=== PATIENT | male | born 1980 | race Caucasian/White ===

== ENCOUNTER 2018-03-21 22:49 | Observation (INO) ==
[2018-03-22] MEDS ORDERED: 0.9 % Sodium Chloride 1,000 ML IVC ONE (00:11)
[2018-03-22] MEDS ORDERED: *HR* FentaNYL (PF) 100 MCG/2 ML VIAL IVP ONE ×2 (00:11→03:37)
--- NOTE | 2018-03-22 00:15 | Emergency Department Note ---
Disposition Clinical Impression: Pelvic pain in male, Bladder stones Urinary tract infection Qualifiers: Urinary tract infection type: site unspecified Hematuria presence: with hematuria Qualified Code(s): N39.0 - Urinary tract infection, site not specified ; R31.9 - Hematuria, unspecified Disposition: Admitted As Inpatient Condition: Fair Referrals: Minda Alicea CNP [Primary Care Provider] - Forms: ED Satisfaction Letter, Work/School Release Time of Disposition: 03:01 Abdominal Pain HPI - General Chief Complaint: ED Abdominal Pain Stated Complaint: Kidney Stones Source: patient, family Mode of arrival: private vehicle Limitations: no limitations Nursing Notes Reviewed: Yes Vital Signs Reviewed: Yes - History of Present Illness Pt Subjective Complaint: abdominal pain Onset (ago): day(s) (Ever since getting Botox injections due to bladder stones at the end of February) Consistency: constant Location: LLQ, RLQ Pain Severity: severe Pain Scale: 7 Quality: sharp Migration to: no migration Improves with: nothing Worsens with: nothing Associated symptoms: Reports: nausea - Related Data Home Medications Medication Instructions Recorded Confirmed Baclofen [Lioresal] 10 mg PO TID PRN 03/07/18 03/07/18 Buspirone HCl [Buspar] 10 mg PO BID 03/07/18 03/07/18 Docusate [Colace] 100 mg PO DAILY 03/07/18 03/07/18 Esomeprazole Magnesium [Nexium] 40 mg PO DAILY 03/07/18 03/07/18 Gabapentin [Neurontin] 400 mg PO TID 03/07/18 03/07/18 Gabapentin [Neurontin] 800 mg PO TID 03/07/18 03/07/18 Lactobacillus Acidophilus 1 mg PO DAILY 03/07/18 03/07/18 [Acidophilus Probiotic] Lidocaine Patch [Lidoderm 5% patch] 1 patch TP DAILY 03/07/18 03/07/18 Megestrol Acetate [Megace] 40 mg PO BID 03/07/18 03/07/18 Multivitamin [One Daily Essential] 1 tab PO DAILY 03/07/18 03/07/18 Sertraline [Zoloft] 100 mg PO DAILY 03/07/18 03/07/18 Solifenacin Succinate [Vesicare] 10 mg PO DAILY 03/07/18 03/07/18 Trazodone HCl 100 mg PO HS 03/07/18 03/07/18 Previous Rx's Medication Instructions Recorded Sulfamethoxazole/Trimeth DS 1 each PO BID #14 tablet 03/07/18 [Bactrim DS] Allergies Allergy/AdvReac Type Severity Reaction Status Date / Time Methadone Allergy See Verified 03/07/18 12:14 Comments ketorolac [From Toradol] AdvReac Seizure Verified 03/07/18 12:14 tramadol AdvReac Seizure Verified 03/07/18 12:14 All systems ED: reviewed and negative except as stated. Constitutional: Denies: fever, chills ENT ED: Denies: ear pain, throat pain Cardiovascular: Denies: chest pain Respiratory: Denies: cough Gastrointestinal: Reports: abdominal pain Integumentary: Denies: rash Abdominal Pain PMH - Past Medical History Medical history: Reports: other Male Surgical History: Reports: colostomy Psychiatric history: Reports: depression - Social History Smoking status: Current every day smoker Alcohol use: Reports: none Drug use: Reports: none Physical Exam - General Limitations: no limitations General appearance: alert, in no apparent distress - Head Head exam: atraumatic, normocephalic, normal inspection - Eye Eye exam: Absent: scleral icterus, conjunctival injection - ENT ENT exam: normal exam, mucous membranes moist - Neck Neck exam: Present: full ROM - Chest Chest inspection: Present: normal inspection, symmetric chest wall rise. Absent : tenderness - Respiratory Respiratory exam: Present: normal lung sounds bilaterally. Absent: respiratory distress, wheezes - Cardiovascular Cardiovascular exam: Present: regular rate, normal rhythm, normal heart sounds - Abdominal Exam Abdominal exam: Present: soft, Non-Tender, normal bowel sounds - Extremities Exam Extremities exam: Present: normal inspection. Absent: pedal edema - Neurological Exam Neurological exam: Present: alert, oriented X3 - Psychiatric Psychiatric exam: Present: normal mood, flat affect - Skin Skin exam: Present: warm, dry. Absent: rash Course Course Narrative: Patient with history of kidney stones and bladder stones. He is getting THE TREATMENTS TRIED TO ALLEVIATE THEM. REPORTEDLY THE FAMILY MEMBERS CALLED THE UROLOGIST OFFICE YESTERDAY AND TODAY AND TODAY AT ABOUT 3:00 THIS AFTERNOON SHE WAS TOLD TO BRING THE ER TO BE EVALUATED AND WE MAY BE ABLE TO CONSULT A UROLOGIST AND GET EXPEDITED MANAGEMENT. SO THE PATIENT SHOWS UP AT 11 PM TO BE SEEN AFTER THAT 3:00 PHONE CALL. BELLY EXAM IS BENIGN. I AM NEGATIVE SOME PAIN MEDICATIONS AND GET A LAB WORKUP GOING AND CT HIS ABDOMEN TO SEE WHAT REALLY GOING ON. DISPOSITION WILL BE BASED ON DIAGNOSTIC RESULTS AND REEVALUATION. - Reevaluation(s) Reevaluation #1: Labs are normal. Urinalysis however has white cells and bacteria and nitrates in it. CAT scan shows tonsil stones in the bladder but no evidence of ureterolithiasis. I had already Spoken to Dr. Miramontes, the urologist. He recommended admitting the patient to the hospital and he is going to operate on him tomorrow to remove those bladder stones. Time: 03:00 - Consultations Consultation #1: Dr. Miramontes, urology - admit patient to hospitalist Time: 00:45 Consultation #2: , hospitalist - I discussed the patient's case with the hospitalist. He is accepted patient for admission. Time: 03:02 Vital Signs Temperature 98.6 F 03/21/18 22:52 Pulse Rate 127 03/21/18 22:52 Respiratory Rate 18 03/21/18 22:52 Blood Pressure 106/70 03/21/18 22:52 O2 Sat by Pulse Oximetry 96 03/21/18 22:52 Temperature 98.6 F 03/21/18 22:52 Pulse Rate 111 03/22/18 01:27 Respiratory Rate 16 03/22/18 01:27 Blood Pressure 98/64 03/22/18 01:27 O2 Sat by Pulse Oximetry 96 03/22/18 01:27 Oxygen Delivery Oxygen Delivery Room Air Abdominal Pain - Medical Records Medical records reviewed: Yes I reviewed the patient's medical records. - Lab Data Lab results reviewed: Yes I reviewed the patient's lab results. Result diagrams: 03/22/18 00:30 03/22/18 00:30 Lab Results 03/22/18 03/22/18 03/22/18 Range/Units 00:30 00:30 00:51 WBC 11.1 (4.3-11.1) K/mcL RBC 5.09 (4.19-5.50) M/mcL Hgb 13.6 (12.9-16.9) g/dL Hct 41.0 (37.5-50.1) % MCV 80.6 L (83.0-100.0) fL MCH 26.7 L (28.0-33.3) pg MCHC 33.2 (31.6-35.5) g/dL RDW 15.4 H (11.5-14.5) % Plt Count 308 (140-400) K/mcL MPV 10.4 (9.4-12.4) fL Immature Gran % 0.4 (0-4) % Seg Neutrophils % 71.6 % Lymphocytes % 19.9 % Monocytes % 6.3 % Eosinophils % 1.2 % Basophils % 0.6 % Neutrophils # 8.0 (1.6-8.9) K/mcL Lymphocytes # 2.2 (0.6-4.6) K/mcL Monocytes # 0.7 (0.0-1.3) K/mcL Eosinophils # 0.1 (0.0-0.6) K/mcL Basophils # 0.1 (0.0-0.2) K/mcL Sodium 137 (136-145) mEq/L Potassium 4.0 (3.5-5.1) mEq/L Chloride 106 (98-107) mEq/L Carbon Dioxide 22 L (23-29) mEq/L BUN 14 (6-20) mg/dL Creatinine 0.53 L (0.70-1.30) mg/dL Est GFR ( Amer) > 60 (> 60) Est GFR (Non-Af Amer) > 60 (> 60) BUN/Creatinine Ratio 26 (6-26) Glucose 102 (70-105) mg/dL Calculated Osmolality 285 (280-300) Calcium 9.1 (8.6-10.3) mg/dL Urine Color Dark Yellow (Yellow) Urine Clarity Cloudy A (Clear) Urine pH 6.0 (5.0-8.0) pH Units Ur Specific [place] 1.030 H (1.010-1.025) Urine Protein 30 H (Neg-Trace) mg/dL Urine Glucose (UA) Normal (Normal) mg/dL Urine Ketones Negative (Negative) mg/dL Urine Blood Large H (Negative) Urine Nitrite Positive A (Negative) Urine Bilirubin Negative (Negative) Urine Urobilinogen Normal (Normal) mg/dL Ur Leukocyte Esterase Large H (Negative) Urine Microscopic RBC 0-3 (0-3) per hpf Urine Microscopic WBC TNTC H (0-3) per hpf Ur Squamous Epith Cells Many H (None-Few) per lpf Urine Bacteria Many H (None-Few) per hpf Hyaline Casts None Seen (None-Few) per lpf Ur Culture Indicated? NO. A (NO) - Radiology Data Radiology results reviewed: Yes I reviewed the patient's radiology results.
[2018-03-22 00:39] LABS: Basophils # 0.1 K/mcL (0.0-0.2); Basophils % 0.6 %; Eosinophils # 0.1 K/mcL (0.0-0.6); Eosinophils % 1.2 %; Hemoglobin 13.6 g/dL (12.9-16.9); Immature Granulocytes % 0.4 % (0-4); Lymphocytes # 2.2 K/mcL (0.6-4.6); Lymphocytes % 19.9 %; Mean Corpuscular HGB Conc 33.2 g/dL (31.6-35.5); Mean Corpuscular Hemoglobin 26.7 pg (28.0-33.3); Mean Corpuscular Volume 80.6 fL (83.0-100.0); Mean Platelet Volume 10.4 fL (9.4-12.4); Monocytes # 0.7 K/mcL (0.0-1.3); Monocytes % 6.3 %; Platelet Count 308 K/mcL (140-400); Red Blood Count 5.09 M/mcL (4.19-5.50); Red Cell Distribution Width 15.4 % (11.5-14.5); Segmented Neutrophils % 71.6 %
[2018-03-22 00:58] LABS: Bilirubin,Urine Negative (Negative); Blood,Urine Large (Negative); Clarity,Urine Cloudy (Clear); Color,Urine Dark Yellow (Yellow); Glucose,Urine (UA) Normal (Normal); Ketones,Urine Negative (Negative); Leukocyte Esterase,Urine Large (Negative); Nitrite,Urine Positive (Negative); Protein,Urine 30 mg/dL (Neg-Trace); Urobilinogen,Urine Normal (Normal)
[2018-03-22 00:58] LABS: BUN/Creatinine Ratio 26 (6-26); Blood Urea Nitrogen 14 mg/dL (6-20); Calcium 9.1 mg/dL (8.6-10.3); Carbon Dioxide 22 mEq/L (23-29); Chloride 106 mEq/L (98-107); Glucose 102 mg/dL (70-105); Osmolality,Calculated 285 (280-300); Sodium 137 mEq/L (136-145); eGFR For African Americans > 60 (> 60); eGFR For Non-African Americans > 60 (> 60)
[2018-03-22 01:01] LABS: Bacteria,Urine Many per hpf (None-Few); Hyaline Casts,Urine None Seen per lpf (None-Few); RBC,Urine 0-3 per hpf (0-3); Squamous Epithelial Cell,Urine Many per lpf (None-Few); WBC,Urine TNTC per hpf (0-3)
[2018-03-22] MEDS ORDERED: cefTRIAXone 1,000 MG in Water for inj. (sterile) 20 ML 10 ML IVPB ONE (02:58)
[2018-03-22] MEDS ORDERED: *HR* FentaNYL (PF) 100 MCG/2 ML VIAL ONE ×2 (03:57→17:06)
[2018-03-22] MEDS ORDERED: *HR* FentaNYL (PF) 100 MCG/2 ML VIAL IVP PRN ×2 (05:20→19:06)
[2018-03-22] MEDS ORDERED: Naloxone 0.4 MG/ML INJ IVP PRN (05:20)
[2018-03-22] MEDS ORDERED: Acetaminophen 325 MG TABLET PO PRN (05:20)
[2018-03-22] MEDS ORDERED: Ondansetron 4 MG/2 ML VIAL IVP PRN (05:20)
--- NOTE | 2018-03-22 05:37 | Internal Med History&Physical ---
Date of Encounter: 03/22/18 Time of Encounter: 05:00 Internal Medicine - H&P: HPI Chief complaint: pelvic pain Admitted From: Emergency Dept Plans for Post Hospital Care: Home History of present illness: Mr. Peraza is a 37 year old male who presents the ER this morning with complaints of pelvic pain, nausea, vomiting. He is paraplegic and suffers from neurogenic bladder. Reportedly, he performs urine catheterization on himself several times per day. He has been following recently Dr. Miramontes and had an outpatient procedure scheduled to be done. However, he developed worsening pelvic pain with protracted nausea and vomiting. Dr. Miramontes recommended he come the ER for evaluation. Workup in ER revealed negative labs except for urinalysis suggestive of UTI. He did have CT imaging of his abdomen and pelvis , which revealed patient to have multiple bladder stones and bladder wall thickening. ER talked to Dr. Miramontes about this patient. Dr. Miramontes requested patient be admitted to hospital service with urology consultation. Upon my assessment of the patient, he is sitting up in bed and rocking back and forth complaining of some pelvic pain. Unfortunately, he provides very little to no history whatsoever. He is not cooperative with history and/or exam. Family members are no longer present at bedside. I could not obtain any further history from patient whatsoever. Past Med Surg Social Fam HX - Past Medical History Source: old records reviewed Medical history: other (paraplegia; chronic sacral decubitus ulcer) Additional medical history: paraplegic, self cath. open wounds on coccyx seen by wound care in [place] Psychiatric history: depression - Past Surgical History Additional surgical history: g tube, G-tube reversal - Social History Smoking Status: Current every day smoker Smokeless Tobacco Status: No Alcohol use: none Drug use: none Current living situation: Home, With Family Activity Level: Wheelchair bound Recent Out of Country Travel Within the Last 8 Weeks: No - Family History Mother History Unknown: Yes Living Status: Still Living Father History Unknown: Yes Internal Medicine - H&P: Meds Baclofen [Lioresal] 10 mg PO TID PRN 03/07/18 [History] Buspirone HCl [Buspar] 10 mg PO BID 03/07/18 [History] Docusate [Colace] 100 mg PO DAILY 03/07/18 [History] Esomeprazole Magnesium [Nexium] 40 mg PO DAILY 03/07/18 [History] Gabapentin [Neurontin] 400 mg PO TID 03/07/18 [History] Gabapentin [Neurontin] 800 mg PO TID 03/07/18 [History] Lactobacillus Acidophilus [Acidophilus Probiotic] 1 mg PO DAILY 03/07/18 [ History] Lidocaine Patch [Lidoderm 5% patch] 1 patch TP DAILY 03/07/18 [History] Megestrol Acetate [Megace] 40 mg PO BID 03/07/18 [History] Multivitamin [One Daily Essential] 1 tab PO DAILY 03/07/18 [History] Sertraline [Zoloft] 100 mg PO DAILY 03/07/18 [History] Solifenacin Succinate [Vesicare] 10 mg PO DAILY 03/07/18 [History] Sulfamethoxazole/Trimeth DS [Bactrim DS] 1 each PO BID #14 tablet 03/07/18 [Rx] Trazodone HCl 100 mg PO HS 03/07/18 [History] 3 Allergy/AdvReac Type Severity Reaction Status Date / Time Methadone Allergy See Verified 03/07/18 12:14 Comments ketorolac [From Toradol] AdvReac Seizure Verified 03/07/18 12:14 tramadol AdvReac Seizure Verified 03/07/18 12:14 ROS unobtainable: other (patient not cooperating with history and/or exam; refusins to answer questions) - Constitutional Vitals: Temp Pulse Resp BP Pulse Ox 98.2 F 81 19 105/67 97 03/22/18 04:41 03/22/18 04:41 03/22/18 04:41 03/22/18 04:41 03/22/18 04:41 General appearance: Present: A&O X 3, no acute distress, answers questions appropriately Exam: refusing to cooperate with [employer] and exam - Head Head exam: Present: normal inspection - Eye Eye exam: Present: EOMI, normal appearance, PERRL. Absent: scleral icterus Pupils: Present: normal accommodation - ENT ENT exam: Present: mucous membranes dry, normal exam, normal oropharynx - Neck Neck exam general surgery: Present: supple. Absent: full ROM, tenderness, nuchal rigidity, thyromegaly - Respiratory Respiratory exam: Present: CTAB. Absent: chest wall tenderness, rales, rhonchi , wheezes - Cardiovascular Cardiovascular exam: Present: +S1, +S2. Absent: diastolic murmur, JVD, RRR, systolic murmur - GI/Abdominal GI/Abdominal exam: Present: soft, tenderness (pelvic area; suprapubic area). Absent: hepatomegaly, splenomegaly - Extremities Exam Extremities exam: Present: warm, radial pulses palpable and symmetrical. Absent : calf tenderness, pedal edema, tenderness Additional comments: atrophy of BLE noted - Back Exam Back exam: Present: CVA tenderness (R). Absent: CVA tenderness (L), vertebral tenderness Additional comments: old/well-healed spinal surgery scar noted Patient would not allow me or nurse to examine sacral wound - Neurological Exam Neurological exam: Present: alert, motor sensory deficit (BLE extremities -- old spinal cord injury), oriented X3 - Psychiatric Psychiatric exam: Present: flat affect Additional comments: non-cooperative with history and exam - Skin Skin exam: Present: dry, intact, warm Internal Med - H&P Results - Labs CBC & Chem 7: 03/22/18 00:30 03/22/18 00:30 - Diagnostic Studies CT scan - abdomen Status: image reviewed by me (multiple bladder stones noted) - Assessment and plan (1) Bladder stones Current Visit: Yes Status: Acute Assessment and plan: 1. Will keep NPO. 2. Will hydrate with IVF, control nausea with anti-emetics, and treat pain with judicious use of IV Fentanyl. 3. Will order STAT urine culture and start IV antibiotics for presumed UTI. 4. Consult urology as he will likely need intervention. (2) Pelvic pain in male Current Visit: Yes Status: Acute Assessment and plan: 1. Likely due to bladder stones and presumed UTI. 2. Will need formal assessment of sacral ulcer as this could contribute to pelvic pain. 3. Will consult wound care to assess sacral wound. (3) Urinary tract infection Current Visit: Yes Status: Acute Assessment and plan: 1. STAT urine culture -- note Rocephin already given in ER before urine sample could be collected. 2. Will treat with Rocephin. 3. Urology consulted for intervention as above. Qualifiers: Urinary tract infection type: site unspecified Hematuria presence: without hematuria Qualified Code(s): N39.0 - Urinary tract infection, site not specified (4) DVT prophylaxis Current Visit: Yes Status: Acute Assessment and plan: 1. Heparin SQ.
[2018-03-22] MEDS ORDERED: 0.9 % Sodium Chloride 1,000 ML ONE (05:39)
[2018-03-22] MEDS ORDERED: Ondansetron 4 MG/2 ML VIAL ONE ×2 (05:39→17:08)
[2018-03-22] MEDS: 0.9 % Sodium Chloride 1,000 ML IVC SCH ×2 (05:49→15:11)
--- NOTE | 2018-03-22 06:47 | Urology - Consult Note ---
Date of Encounter: 03/22/18 Time of Encounter: 06:45 - Assessment and Plan (1) Bladder stones Current Visit: Yes Status: Acute Assessment and plan: I personally reviewed the CT scan. Again noted are innumerable large bladder stones. Based on my conversation with the patient's mom a few weeks ago and their desire to undergo outpatient open cystolithotomy we have elected to proceed with the procedure as an inpatient. The patient does not verbally communicate but did shake his head yes when asked if he wished to proceed. We will confirm this plan with the mother prior to proceeding this afternoon. Urology CN:HPI Consult date: 03/22/18 History of present illness: Patient well-known to the urology service. Neurogenic bladder secondary to spinal cord injury. Known bladder stones which were discovered during an intravesical Botox procedure. Plan for outpatient open cystolithotomy. Continues to have significant symptoms and was admitted from the emergency room overnight. No fever. Past Med Surg Social Fam HX - Past Medical History Medical history: other (paraplegia; chronic sacral decubitus ulcer) Additional medical history: paraplegic, self cath. open wounds on coccyx seen by wound care in [place] Psychiatric history: depression - Past Surgical History Additional surgical history: g tube, G-tube reversal - Social History Smoking Status: Current every day smoker Smokeless Tobacco Status: No Alcohol use: none Drug use: none - Family History Mother History Unknown: Yes Living Status: Still Living Father History Unknown: Yes Medications and Allergies Baclofen [Lioresal] 10 mg PO TID PRN 03/07/18 [History] Buspirone HCl [Buspar] 10 mg PO BID 03/07/18 [History] Docusate [Colace] 100 mg PO DAILY 03/07/18 [History] Esomeprazole Magnesium [Nexium] 40 mg PO DAILY 03/07/18 [History] Gabapentin [Neurontin] 400 mg PO TID 03/07/18 [History] Gabapentin [Neurontin] 800 mg PO TID 03/07/18 [History] Lactobacillus Acidophilus [Acidophilus Probiotic] 1 mg PO DAILY 03/07/18 [ History] Lidocaine Patch [Lidoderm 5% patch] 1 patch TP DAILY 03/07/18 [History] Megestrol Acetate [Megace] 40 mg PO BID 03/07/18 [History] Multivitamin [One Daily Essential] 1 tab PO DAILY 03/07/18 [History] Sertraline [Zoloft] 100 mg PO DAILY 03/07/18 [History] Solifenacin Succinate [Vesicare] 10 mg PO DAILY 03/07/18 [History] Sulfamethoxazole/Trimeth DS [Bactrim DS] 1 each PO BID #14 tablet 03/07/18 [Rx] Trazodone HCl 100 mg PO HS 03/07/18 [History] 3 Allergy/AdvReac Type Severity Reaction Status Date / Time Methadone Allergy See Verified 03/07/18 12:14 Comments ketorolac [From Toradol] AdvReac Seizure Verified 03/07/18 12:14 tramadol AdvReac Seizure Verified 03/07/18 12:14 Review of Systems ROS unobtainable: due to mental status - Constitutional no fever(s) Exam Initial Vital Signs Temp Pulse Resp BP Pulse Ox 98.6 F 127 18 106/70 96 03/21/18 22:52 03/21/18 22:52 03/21/18 22:52 03/21/18 22:52 03/21/18 22:52 - General physical appearance Present: no distress, chronically ill - Eyes Present: other (does Not make eye contact) - ENT Present: normal nares - Neck Present: no masses. Absent: no lymphadenopathy - Abdomen Abdomen: Present: soft, suprapubic tenderness (non verbal communication. ) Urology Results - Labs 03/22/18 00:30 03/22/18 00:30 Abnormal lab results MCV 80.6 fL (83.0-100.0) L 03/22/18 00:30 MCH 26.7 pg (28.0-33.3) L 03/22/18 00:30 RDW 15.4 % (11.5-14.5) H 03/22/18 00:30 Carbon Dioxide 22 mEq/L (23-29) L 03/22/18 00:30 Creatinine 0.53 mg/dL (0.70-1.30) L 03/22/18 00:30 Urine Clarity Cloudy (Clear) A 03/22/18 00:51 Ur Specific [place] 1.030 (1.010-1.025) H 03/22/18 00:51 Urine Protein 30 mg/dL (Neg-Trace) H 03/22/18 00:51 Urine Blood Large (Negative) H 03/22/18 00:51 Urine Nitrite Positive (Negative) A 03/22/18 00:51 Ur Leukocyte Esterase Large (Negative) H 03/22/18 00:51 Urine Microscopic WBC TNTC per hpf (0-3) H 03/22/18 00:51 Ur Squamous Epith Cells Many per lpf (None-Few) H 03/22/18 00:51 Urine Bacteria Many per hpf (None-Few) H 03/22/18 00:51 Ur Culture Indicated? NO. (NO) A 03/22/18 00:51 All other labs normal. Consult Discharge Plan - Plan Referrals: Minda Alicea, [facility] [Primary Care Provider] -
[2018-03-22] MEDS: *HR* Heparin 5,000 UNIT/ML VIAL SQ SCH (06:50)
[2018-03-22 06:59] LABS: INR 1.4; Prothrombin Time 15.7 Seconds (9.4-12.1)
[2018-03-22 07:01] LABS: Activated Partial Thrombo Time 36.5 Seconds (26.0-36.0)
[2018-03-22] MEDS ORDERED: *HR* OxyCODONE Immed Rel 5 MG TABLET PO PRN ×2 (10:37→19:06)
[2018-03-22] MEDS ORDERED: Baclofen 10 MG TABLET PO PRN (13:41)
[2018-03-22] MEDS ORDERED: NON-FORMULARY MEDICATION 1 EACH EACH (Gabapentin [Neurontin] 800 MG) PO SCH (15:00)
[2018-03-22] MEDS ORDERED: Gabapentin 400 MG CAPSULE PO SCH (15:00)
[2018-03-22] MEDS: cefTRIAXone 1,000 MG in Water for inj. (sterile) 20 ML 10 ML IVP SCH (15:12)
[2018-03-22] MEDS: Gabapentin 400 MG CAPSULE PO SCH ×2 (15:12→22:10)
[2018-03-22] MEDS ORDERED: *HR* Propofol 200 MG/20 ML VIAL IVP ONE (17:06)
[2018-03-22] MEDS ORDERED: *HR* Midazolam HCl 2 MG/2 ML VIAL ONE ×2 (17:06→19:28)
[2018-03-22] MEDS ORDERED: Dexamethasone 4 MG/ML VIAL ONE (17:08)
[2018-03-22] MEDS ORDERED: Lidocaine -MPF 2% 2 ML VIAL ONE (17:08)
--- NOTE | 2018-03-22 17:59 | Anesthesia Evaluation PreOp ---
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) Other Medical History: Denies Any Significant HX Anesthesia History: No Prior Anesthetic Complications Alcohol Use: none Drug use: none Medications and Allergies Baclofen [Lioresal] 10 mg PO TID PRN 03/07/18 [History] Buspirone HCl [Buspar] 10 mg PO BID 03/07/18 [History] Docusate [Colace] 100 mg PO DAILY 03/07/18 [History] Esomeprazole Magnesium [Nexium] 40 mg PO DAILY 03/07/18 [History] Gabapentin [Neurontin] 400 mg PO TID 03/07/18 [History] Gabapentin [Neurontin] 800 mg PO TID 03/07/18 [History] Lactobacillus Acidophilus [Acidophilus Probiotic] 1 mg PO DAILY 03/07/18 [ History] Lidocaine Patch [Lidoderm 5% patch] 1 patch TP DAILY 03/07/18 [History] Megestrol Acetate [Megace] 40 mg PO BID 03/07/18 [History] Multivitamin [One Daily Essential] 1 tab PO DAILY 03/07/18 [History] Sertraline [Zoloft] 100 mg PO DAILY 03/07/18 [History] Trazodone HCl 100 mg PO HS 03/07/18 [History] Oxybutynin Chloride [Ditropan Xl] 15 mg PO DAILY 03/22/18 [History] 3 Allergy/AdvReac Type Severity Reaction Status Date / Time Methadone Allergy See Verified 03/07/18 12:14 Comments ketorolac [From Toradol] AdvReac Seizure Verified 03/07/18 12:14 tramadol AdvReac Seizure Verified 03/07/18 12:14 - Meds/Allergy Pre-op Review Medications Reviewed: Yes Allergies Reviewed: Yes Beta Blockers on Current Med List: No Anesthesia Results - Labs 03/22/18 00:30 03/22/18 00:30 Anesthesia Exam Vital Signs/O2 Sat/Glucose, Most Current Temp Pulse Resp BP Pulse Ox 03/22/18 14:17 98.2 F 73 16 114/70 98 Height: 6'0 Weight: 121 lbs NPO (# of Hours): MN Pain Scale: 0 - HEENT Pupil (Motor): Pupils equal, EOMI Mallampati: II Teeth: Edentulous Oral Opening: Greater than 3 - TELEVISION ANCHOR LOC: Oriented TELEVISION ANCHOR Motor: Normal RUE, Normal LUE, Normal Face, Deficit RLE, Deficit LLE TELEVISION ANCHOR Sensory: Normal: RUE, LUE, Face, Deficit: RLE, LLE - Cardiac Rhythm: Regular Murmur: None JVD: No Carotid Bruit: No - Pulmonary Breath Sounds: bilateral Clear Respiratory Effort: Symmetrical Anesthesia Assess/Plan ASA Score: 3 (Paraplegic, Tobacco)
[2018-03-22] MEDS ORDERED: Albuterol 2.5 MG/3 ML NEBULIZER IH ONE (18:01)
[2018-03-22] MEDS ORDERED: Acetaminophen IV 1,000 MG/100 ML INFUS..BTL ONE (18:12)
[2018-03-22] MEDS ORDERED: Albuterol 2.5 MG/3 ML NEBULIZER ONE (18:12)
[2018-03-22] MEDS ORDERED: *HR* PHENYLEPHRINE 1,000 MCG/10 ML SYRINGE IVP ONE (18:56)
[2018-03-22] MEDS ORDERED: EPHEDrine 50 MG/ML VIAL ONE (18:56)
[2018-03-22] MEDS ORDERED: Ondansetron 4 MG/2 ML VIAL IVP ONE (19:06)
--- NOTE | 2018-03-22 19:35 | Operative Note ---
Date of procedure: 03/22/18 Pre-op diagnosis: large number of bladder stones Post-op diagnosis: same Procedure: open cystolithotomy. 8-10 large stones. Anesthesia: GETA Surgeon: Landen Miramontes Was there an assistant to the ceo present: No Estimated blood loss (cc): 5 Specimen: bladder stones. Condition: stable Disposition: PACU Procedure in Detail: Patient was taken back to the operating room and positioned supine on the operating table. Anesthesia was applied without complication. He was kept in the supine position and prepped and draped sterile fashion. Timeout was performed confirming the proper patient and procedure. 18-[place] Cole catheter was inserted through his penis without difficulty. Minimal return of urine noted. A small Pfannenstiel incision was made 2 fingerbreadths above the pubic symphysis. The underlying tissue was dissected carefully using a left cautery Bovie. The fascia was incised with a left cautery Bovie and was able to separate in the midline his atrophic rectus muscle. I then filled the bladder with 300 mL of normal saline. I inserted a spinal needle to identify the bladder and then placed 2-0 Vicryl sutures through the bladder wall one on each side of the midline of my incision. I then made an incision vertically through the detrusor muscle and entered the bladder. The fluid was suctioned from the bladder. I then used ring forceps to remove all of the bladder stones that were seen on preoperative CT scan. I estimated at least 8 stones were removed with the largest approximately 2-3 cm. The Cole catheter balloon was in place. No other gross abnormalities of bladder were noted. I closed the bladder in 2 layers. The mucosa was closed with 3-0 Vicryl and the detrusor muscle with 2-0 Vicryl. I then used the 0 Vicryl sutures that had been preplaced 2 and tied them together to further secure my cystotomy repair. The fascia was closed with a number of interruppted 0 Vicryl sutures. The skin was closed with marcin. Cole catheter will be left in place at least 2 weeks and a cystogram will be performed at that time.
--- NOTE | 2018-03-22 19:53 | Anesthesia Evaluation Post Op ---
Date of Encounter: 03/22/18 Time of Encounter: 19:52 - Vital Signs Vital Signs: Last Vital Signs Temp 98.4 F 03/22/18 19:30 Pulse 89 03/22/18 19:50 Resp 20 03/22/18 19:50 BP 100/50 03/22/18 19:50 Pulse Ox 94 03/22/18 19:50 - Lungs Lungs: Clear Ascult./Percussion - Airway Airway: Non-obstructed - Cardiovascular Regular Rate - Mental Status Mental Status: Alert & Oriented, Answers Appropriately - Pain Pain Scale: 3 - Nausea Vomiting Nausea Vomiting: Not Present - Hydration Hydration: Ice chips - Discharge PostOp Status: Transfer Patient to floor
[2018-03-22] MEDS ORDERED: traZODone 50 MG TABLET PO SCH (21:00)
[2018-03-22 21:18] LABS: Amphetamine Screen,Urine Negative ng/mL (Cutoff=1000); Barbiturate Screen,Urine Negative ng/mL (Cutoff=200); Benzodiazepines Screen,Urine Positive ng/mL (Cutoff=200); Cannabinoid Screen,Urine Positive ng/mL (Cutoff = 50); Cocaine Screen,Urine Negative ng/mL (Cutoff= 300); Opiate Screen,Urine Negative ng/mL (Cutoff=300); Phencyclidine Screen,Urine Negative ng/mL (Cutoff=25)
[2018-03-23] MEDS: cefTRIAXone 1,000 MG in Water for inj. (sterile) 20 ML 10 ML IVP SCH (03:51)
[2018-03-23 06:51] LABS: Basophils % 0.3 %; Hematocrit 35.8 % (37.5-50.1); Hemoglobin 11.9 g/dL (12.9-16.9); Immature Granulocytes % 0.5 % (0-4); Immature Platelets 3.8 % (1.1-6.1); Lymphocytes % 9.4 %; Mean Corpuscular HGB Conc 33.2 g/dL (31.6-35.5); Mean Corpuscular Hemoglobin 26.9 pg (28.0-33.3); Mean Platelet Volume 10.5 fL (9.4-12.4); Monocytes # 0.6 K/mcL (0.0-1.3); Monocytes % 5.9 %; Platelet Count 278 K/mcL (140-400); Red Blood Count 4.42 M/mcL (4.19-5.50); Red Cell Distribution Width 15.2 % (11.5-14.5); Segmented Neutrophils % 83.9 %
[2018-03-23] MEDS: *HR* Heparin 5,000 UNIT/ML VIAL SQ SCH (07:06)
[2018-03-23 07:13] LABS: Alanine Aminotransferase 7 Units/L (7-52); Alkaline Phosphatase 85 Units/L (34-104); Aspartate Amino Transferase 9 Units/L (13-39); BUN/Creatinine Ratio 22 (6-26); Bilirubin,Total 0.3 mg/dL (0.3-1.0); Blood Urea Nitrogen 11 mg/dL (6-20); Calcium 8.6 mg/dL (8.6-10.3); Carbon Dioxide 21 mEq/L (23-29); Chloride 108 mEq/L (98-107); Globulin 3.1 g/dL (2.4-3.5); Glucose 172 mg/dL (70-105); Magnesium 1.7 mg/dL (1.6-2.6); Osmolality,Calculated 287 (280-300); Sodium 137 mEq/L (136-145); Total Protein 6.1 g/dL (6.4-8.9); eGFR For African Americans > 60 (> 60); eGFR For Non-African Americans > 60 (> 60)
[2018-03-23] MEDS ORDERED: Naloxone 0.4 MG/ML INJ IVP PRN (08:42)
[2018-03-23] MEDS ORDERED: Ondansetron 4 MG/2 ML VIAL IVP ONE (08:42)
[2018-03-23] MEDS ORDERED: Baclofen 10 MG TABLET PO PRN (08:42)
[2018-03-23] MEDS ORDERED: *HR* FentaNYL (PF) 100 MCG/2 ML VIAL IVP PRN (08:42)
[2018-03-23] MEDS ORDERED: Ondansetron 4 MG/2 ML VIAL IVP PRN (08:42)
[2018-03-23] MEDS ORDERED: Acetaminophen 325 MG TABLET PO PRN (08:42)
[2018-03-23] MEDS ORDERED: Gabapentin 400 MG CAPSULE PO SCH (09:00)
[2018-03-23] MEDS ORDERED: Lactobacillus 1 EACH CAP.SPRINK PO SCH (09:00)
[2018-03-23] MEDS: *HR* OxyCODONE Immed Rel 5 MG TABLET PO PRN ×2 (09:03→13:07)
--- NOTE | 2018-03-23 09:47 | Discharge Summary ---
Orders not resulted at time of discharge: Pending orders 03/22/18 19:19 Surgical Pathology [PTH] Routine Date of Encounter: 03/23/18 Time of Encounter: 09:50 - Discharge Diagnosis (1) Bladder stones Priority: Primary Status: Acute - Hospital Course Hospital course: Mr. Peraza is a 37 year old male Time spent discussing smoking cessation with patient: 3 to 10 minutes - Time Spent with Patient Total time spent providing and/or coordinating discharge services: Less than 30 minutes Procedures and tests throughout hospitalization: Open Cystolithotomy Labs on day of discharge: Labs from last 24 hours 03/23/18 03/23/18 03/22/18 06:17 06:17 20:47 WBC 10.8 RBC 4.42 Hgb 11.9 L D Hct 35.8 L MCV 81.0 L MCH 26.9 L MCHC 33.2 RDW 15.2 H Plt Count 278 MPV 10.5 Immature Gran % 0.5 Seg Neutrophils % 83.9 Lymphocytes % 9.4 Monocytes % 5.9 Eosinophils % 0.0 Basophils % 0.3 Neutrophils # 9.0 H Lymphocytes # 1.0 Monocytes # 0.6 Eosinophils # 0.0 Basophils # 0.0 Immature Plt Fraction 3.8 Sodium 137 Potassium 4.0 Chloride 108 H Carbon Dioxide 21 L BUN 11 Creatinine 0.50 L Est GFR ( Amer) > 60 Est GFR (Non-Af Amer) > 60 BUN/Creatinine Ratio 22 Glucose 172 H Calculated Osmolality 287 Calcium 8.6 Magnesium 1.7 Total Bilirubin 0.3 AST 9 L ALT 7 Alkaline Phosphatase 85 Serum Total Protein 6.1 L Albumin 3.0 L Globulin 3.1 Albumin/Globulin Ratio 1.0 L Urine Opiates Screen Negative Ur Barbiturates Screen Negative Ur Phencyclidine Scrn Negative Ur Amphetamines Screen Negative U Benzodiazepines Scrn Positive H Urine Cocaine Screen Negative U Marijuana (THC) Screen Positive H Ur Drug Screen Interp See Below - Discharge Medications Prescriptions: Oxycodone HCl/Acetaminophen [Percocet 5-325 mg Tablet] 1 each PO Q4-6H PRN 4 Days #16 tablet PRN Reason: Pain Home Medications: Baclofen [Lioresal] 10 mg PO TID PRN 03/07/18 [History] Buspirone HCl [Buspar] 10 mg PO BID 03/07/18 [History] Docusate [Colace] 100 mg PO DAILY 03/07/18 [History] Esomeprazole Magnesium [Nexium] 40 mg PO DAILY 03/07/18 [History] Gabapentin [Neurontin] 400 mg PO TID 03/07/18 [History] Gabapentin [Neurontin] 800 mg PO TID 03/07/18 [History] Lactobacillus Acidophilus [Acidophilus Probiotic] 1 mg PO DAILY 03/07/18 [ History] Lidocaine Patch [Lidoderm 5% patch] 1 patch TP DAILY 03/07/18 [History] Megestrol Acetate [Megace] 40 mg PO BID 03/07/18 [History] Multivitamin [One Daily Essential] 1 tab PO DAILY 03/07/18 [History] Sertraline [Zoloft] 100 mg PO DAILY 03/07/18 [History] Trazodone HCl 100 mg PO HS 03/07/18 [History] Oxybutynin Chloride [Ditropan Xl] 15 mg PO DAILY 03/22/18 [History] Oxycodone HCl/Acetaminophen [Percocet 5-325 mg Tablet] 1 each PO Q4-6H PRN 4 Days #16 tablet 03/23/18 [Rx] Allergies/Adverse Reactions: 3 Allergy/AdvReac Type Severity Reaction Status Date / Time Methadone Allergy See Verified 03/07/18 12:14 Comments ketorolac [From Toradol] AdvReac Seizure Verified 03/07/18 12:14 tramadol AdvReac Seizure Verified 03/07/18 12:14 Date of admission: 03/22/18 03:47 Primary care physician: Minda Alicea CNP Consults: 03/22/18 05:22 Consult to Physician [CONS] Routine Consulting Provider: Landen Miramontes Reason for Consult: bladdder stones Call Completed: Yes 03/22/18 05:52 Consult to Wound Care [CONS] Routine Reason for Consult: chronic sacral wound Call Completed: No Discharging clinician: Eda Soriano Anticipated date of discharge: 03/23/18 Exam Initial Vital Signs Temp Pulse Resp BP Pulse Ox 98.6 F 127 18 106/70 96 03/21/18 22:52 03/21/18 22:52 03/21/18 22:52 03/21/18 22:52 03/21/18 22:52 - General physical appearance Present: well developed, no distress - Eyes Present: PERRL, normal ocular movement - ENT Present: normal nares. Absent: nasal discharge - Neck Present: no masses, trachea midline - Respiratory Present: normal respiratory effort - Cardiovascular Cardiovascular exam IM: RRR - Abdomen Abdomen: Present: soft, tender (Colostomy site intact; surgical dressings clean , dry, intact ). Absent: rigid - Genitourinary normal penis with no external lesions (holrbook catheter indwelling, sufficiently draining clear urine into bedside bag ) - Integumentary Present: no rash, no abnormal pigmentation - Neurologic Present: normal coordination - Patient Status Disposition: Home, Self-Care Condition: Good Functional capacity at discharge: wheelchair bound Overall status at discharge: patient is progressing back to baseline - Discharge Instructions Follow Up With: Minda Alicea CNP [Primary Care Provider] - Landen Miramontes MD [Partnered Physician] - Additional Instructions: Call if fever greater than 101 degrees. Catheter is to remain indwelling for 2 weeks. Plan Cystogram in 2 weeks. Do not engage in any lifting or heavy activity until seen at postoperative appointment. - Diet and Activity Activity: increase activity as tolerated Diet: advance to your usual diet - VTE Documentation of Mechanical Device: Intermittent pneumatic compression device
[2018-03-23 11:30] VITALS: BP 100/66
--- NOTE | 2018-03-23 14:44 | Event Note ---
<Roberto Vela - Last Filed: 03/23/18 14:43> Date of Encounter: 03/23/18 Time of Encounter: 14:43 Patient was discharged by Urology before being seen by IM attending. <Durga Degroot - Last Filed: 03/23/18 18:13> Date of Encounter: 03/23/18 Attestation by attending staff Patient was discharged by Urology team before being seen by us
--- NOTE | 2018-03-23 15:49 | Physician Discharge Referral ---
Home Health/Hosp Referral Info Transfer to: Home Health Attending Provider: Dr. Degroot Provider in Charge Post Discharge: PCP - Diagnosis (1) Bladder stones Priority: Primary Status: Resolved (2) DVT prophylaxis Priority: Secondary Status: Acute (3) Pelvic pain in male Priority: Secondary Status: Resolved (4) Urinary tract infection Priority: Secondary Status: Resolved - Respiratory Orders None Smoking Cessation: Smoking cessation has been advised. For more information, call the [employer] Quit Line at 4-868-RMFJ-NOW. - Dressing/Wound Care Site: Wound Care: pressure ulcer of the coccyx - cleanse with dermal wound cleanser ( CSS-Microklenz) daily - lightly pack wound with calcium alginate with silver ( CSS-Maxorb AG) - pad with 4x4s and 5x9 ABD - hold secure with medipore tape - change daily - Diet/Nutrition Diet/Nutrition Orders: Regular - Activity Activity Orders: Chair - Services Needed Following services are medically necessary services: Nursing, Home Health Aide, Physical Therapy, Occupational Therapy - Transfer Medications Prescriptions: Oxycodone HCl/Acetaminophen [Percocet 5-325 mg Tablet] 1 each PO Q4-6H PRN 4 Days #16 tablet PRN Reason: Pain Home Medications: Baclofen [Lioresal] 10 mg PO TID PRN 03/07/18 [History] Buspirone HCl [Buspar] 10 mg PO BID 03/07/18 [History] Docusate [Colace] 100 mg PO DAILY 03/07/18 [History] Esomeprazole Magnesium [Nexium] 40 mg PO DAILY 03/07/18 [History] Gabapentin [Neurontin] 400 mg PO TID 03/07/18 [History] Gabapentin [Neurontin] 800 mg PO TID 03/07/18 [History] Lactobacillus Acidophilus [Acidophilus Probiotic] 1 mg PO DAILY 03/07/18 [ History] Lidocaine Patch [Lidoderm 5% patch] 1 patch TP DAILY 03/07/18 [History] Megestrol Acetate [Megace] 40 mg PO BID 03/07/18 [History] Multivitamin [One Daily Essential] 1 tab PO DAILY 03/07/18 [History] Sertraline [Zoloft] 100 mg PO DAILY 03/07/18 [History] Trazodone HCl 100 mg PO HS 03/07/18 [History] Oxybutynin Chloride [Ditropan Xl] 15 mg PO DAILY 03/22/18 [History] Oxycodone HCl/Acetaminophen [Percocet 5-325 mg Tablet] 1 each PO Q4-6H PRN 4 Days #16 tablet 03/23/18 [Rx] Allergies/Adverse Reactions: 3 Allergy/AdvReac Type Severity Reaction Status Date / Time Methadone Allergy See Verified 03/07/18 12:14 Comments ketorolac [From Toradol] AdvReac Seizure Verified 03/07/18 12:14 tramadol AdvReac Seizure Verified 03/07/18 12:14 Certification: Further, I certify that my clinical findings support that this patient is homebound (i.e. absences from home require considerable and taxing effort and are for medical reasons or jewish services or infrequently or short duration when for other reasons) because: Homebound Reason: Patient requires assistance of a person or device to safely leave home, Absences from home are contraindicated except to recieve medical care, Post-surgery restriction and or conditions limit ability to leave home, Leaving home requires considerable and taxing effort due to condition Attestation: My signature below is to certify that this patient is under my care and that I, or nurse practitioner, or a physician's blood donor unit assistant working with me, has a face-to -face encounter with this patient.
[2018-03-23] MEDS ORDERED: cefTRIAXone 1,000 MG in Water for inj. (sterile) 20 ML 10 ML IVP SCH (16:00)
[2018-03-23] MEDS ORDERED: *HR* Heparin 5,000 UNIT/ML VIAL SQ SCH (18:00)
[2018-03-23] MEDS ORDERED: traZODone 50 MG TABLET PO SCH (21:00)
== END 2018-03-23 13:03 | disposition home or self-care (01) ==
LOC: EMEROO 22:49 → 3ANU 22:49 → SUATTDRO 03-22 03:47 → 3ANU 03-22 04:29
PROVIDERS: ADMIT Pediatrics; ATTEND Internal Medicine

== ENCOUNTER 2021-06-29 16:25 | Inpatient (IN) ==
[2021-06-29] MEDS ORDERED: 0.9 % Sodium Chloride 1,000 ML IVC ONE (19:35)
[2021-06-29] MEDS ORDERED: *HR* HYDROmorphone (PF) 1 MG/ML SYRINGE IVP ONE (19:35)
[2021-06-29] MEDS ORDERED: Piperacillin/Tazobactam 3.375 GM in 0.9 % Sodium Chloride Mini Bag 100 ML IVPB ONE (19:37)
[2021-06-29 19:54] LABS: Basophils # 0.1 K/mcL (0.0-0.2); Basophils % 0.7 %; Eosinophils # 0.2 K/mcL (0.0-0.6); Eosinophils % 1.3 %; Hematocrit 42.1 % (37.5-50.1); Immature Granulocytes % 0.3 % (0-4); Lymphocytes # 1.3 K/mcL (0.6-4.6); Lymphocytes % 11.5 %; Mean Corpuscular HGB Conc 30.9 g/dL (31.6-35.5); Mean Corpuscular Hemoglobin 26.1 pg (28.0-33.3); Mean Corpuscular Volume 84.5 fL (83.0-100.0); Mean Platelet Volume 10.3 fL (9.4-12.4); Monocytes # 0.6 K/mcL (0.0-1.3); Monocytes % 5.4 %; Neutrophils # 9.1 K/mcL (1.6-8.9); Platelet Count 390 K/mcL (140-400); Red Blood Count 4.98 M/mcL (4.19-5.50); Red Cell Distribution Width 14.5 % (11.5-14.5); Segmented Neutrophils % 80.8 %; White Blood Count 11.2 K/mcL (4.3-11.1)
[2021-06-29] MEDS ORDERED: Naloxone 0.4 MG/ML INJ IVP PRN (22:55)
[2021-06-29] MEDS ORDERED: Melatonin 3 MG TABLET PO PRN (22:55)
[2021-06-29] MEDS ORDERED: 0.9 % Sodium Chloride 1,000 ML IVC SCH (23:45)
[2021-06-29] MEDS ORDERED: *HR* OxyCODONE Immed Rel 5 MG TABLET PO ONE (23:45)
[2021-06-30 00:25] LABS: Alanine Aminotransferase 7 Units/L (7-52); Albumin 3.4 g/dL (3.5-5.7); Albumin/Globulin Ratio 0.9 (1.1-2.2); Alkaline Phosphatase 119 Units/L (34-104); Aspartate Amino Transferase 12 Units/L (13-39); BUN/Creatinine Ratio 13 (6-26); Bilirubin,Total 0.6 mg/dL (0.3-1.0); Blood Urea Nitrogen 8 mg/dL (6-20); Calcium 8.9 mg/dL (8.6-10.3); Carbon Dioxide 29 mEq/L (23-29); Chloride 101 mEq/L (98-107); Globulin 3.8 g/dL (2.4-3.5); Glucose 95 mg/dL (70-105); Osmolality,Calculated 282 (280-300); Potassium 4.1 mEq/L (3.5-5.1); Sodium 137 mEq/L (136-145); Total Protein 7.2 g/dL (6.4-8.9); eGFR For African Americans > 60 (> 60); eGFR For Non-African Americans > 60 (> 60)
[2021-06-30] MEDS ORDERED: *HR* OxyCODONE Immed Rel 5 MG TABLET PO ONE (03:16)
[2021-06-30] MEDS: *HR* Heparin 5,000 UNIT/ML VIAL SQ SCH ×3 (05:23→21:56)
[2021-06-30 06:43] LABS: Basophils # 0.1 K/mcL (0.0-0.2); Basophils % 0.8 %; Eosinophils # 0.3 K/mcL (0.0-0.6); Eosinophils % 3.3 %; Hematocrit 34.2 % (37.5-50.1); Immature Granulocytes % 0.4 % (0-4); Lymphocytes # 1.5 K/mcL (0.6-4.6); Lymphocytes % 19.4 %; Mean Corpuscular HGB Conc 30.7 g/dL (31.6-35.5); Mean Corpuscular Hemoglobin 25.8 pg (28.0-33.3); Mean Platelet Volume 10.3 fL (9.4-12.4); Monocytes # 0.6 K/mcL (0.0-1.3); Monocytes % 7.7 %; Neutrophils # 5.4 K/mcL (1.6-8.9); Platelet Count 325 K/mcL (140-400); Red Blood Count 4.07 M/mcL (4.19-5.50); Red Cell Distribution Width 14.6 % (11.5-14.5); Segmented Neutrophils % 68.4 %; White Blood Count 7.9 K/mcL (4.3-11.1)
[2021-06-30 06:53] LABS: Hemoglobin 10.5 g/dL (12.9-16.9)
[2021-06-30] MEDS: Piperacillin/Tazobactam 3.375 GM in 0.9 % Sodium Chloride Mini Bag 100 ML IVPB SCH ×3 (08:46→23:41)
[2021-06-30] MEDS ORDERED: *HR* HYDROcodone/Acet 5/325 mg TABLET PO PRN (16:51)
[2021-06-30] MEDS: *HR* OxyCODONE/APAP 10/325 TABLET PO PRN (17:22)
[2021-07-01] MEDS: *HR* Heparin 5,000 UNIT/ML VIAL SQ SCH ×3 (05:42→22:07)
[2021-07-01] MEDS: Piperacillin/Tazobactam 3.375 GM in 0.9 % Sodium Chloride Mini Bag 100 ML IVPB SCH ×3 (07:50→23:44)
[2021-07-01 09:08] LABS: Hematocrit 33.4 % (37.5-50.1); Hemoglobin 10.4 g/dL (12.9-16.9); Mean Corpuscular HGB Conc 31.1 g/dL (31.6-35.5); Mean Corpuscular Hemoglobin 26.3 pg (28.0-33.3); Mean Corpuscular Volume 84.3 fL (83.0-100.0); Mean Platelet Volume 10.2 fL (9.4-12.4); Platelet Count 331 K/mcL (140-400); Red Blood Count 3.96 M/mcL (4.19-5.50); Red Cell Distribution Width 14.5 % (11.5-14.5); White Blood Count 6.4 K/mcL (4.3-11.1)
[2021-07-01 11:12] LABS: BUN/Creatinine Ratio 24 (6-26); Blood Urea Nitrogen 16 mg/dL (6-20); Calcium 8.3 mg/dL (8.6-10.3); Carbon Dioxide 26 mEq/L (23-29); Chloride 107 mEq/L (98-107); Glucose 87 mg/dL (70-105); Osmolality,Calculated 287 (280-300); Potassium 4.3 mEq/L (3.5-5.1); Sodium 138 mEq/L (136-145); eGFR For African Americans > 60 (> 60); eGFR For Non-African Americans > 60 (> 60)
[2021-07-01] MEDS: *HR* OxyCODONE/APAP 10/325 TABLET PO PRN ×2 (11:41→20:33)
[2021-07-01] MEDS: Baclofen 10 MG TABLET PO SCH ×3 (11:41→20:18)
[2021-07-01] MEDS: Nicotine 21 MG PATCH.TD24 TD SCH (15:32)
[2021-07-01] MEDS: Gabapentin 400 MG CAPSULE PO SCH (20:30)
[2021-07-01] MEDS ORDERED: NON-FORMULARY MEDICATION 1 EACH EACH (Gabapentin [Neurontin] 800 MG Tablet) PO SCH (21:00)
[2021-07-02] MEDS: *HR* Heparin 5,000 UNIT/ML VIAL SQ SCH (05:40)
[2021-07-02] MEDS: *HR* OxyCODONE/APAP 10/325 TABLET PO PRN (05:44)
[2021-07-02 07:34] VITALS: BP 137/83; PULSE 83; TEMP 97.7; O2SAT 96
[2021-07-02 08:08] LABS: Basophils # 0.1 K/mcL (0.0-0.2); Basophils % 0.6 %; Eosinophils # 0.2 K/mcL (0.0-0.6); Eosinophils % 2.7 %; Hematocrit 36.7 % (37.5-50.1); Hemoglobin 11.2 g/dL (12.9-16.9); Immature Granulocytes % 0.4 % (0-4); Lymphocytes # 1.5 K/mcL (0.6-4.6); Mean Corpuscular HGB Conc 30.5 g/dL (31.6-35.5); Mean Corpuscular Hemoglobin 25.9 pg (28.0-33.3); Mean Platelet Volume 11.2 fL (9.4-12.4); Monocytes # 0.5 K/mcL (0.0-1.3); Monocytes % 6.4 %; Neutrophils # 5.5 K/mcL (1.6-8.9); Platelet Count 296 K/mcL (140-400); Red Blood Count 4.32 M/mcL (4.19-5.50); Red Cell Distribution Width 14.6 % (11.5-14.5); Segmented Neutrophils % 70.9 %; White Blood Count 7.7 K/mcL (4.3-11.1)
[2021-07-02 08:20] LABS: BUN/Creatinine Ratio 26 (6-26); Blood Urea Nitrogen 16 mg/dL (6-20); Calcium 8.7 mg/dL (8.6-10.3); Carbon Dioxide 25 mEq/L (23-29); Chloride 105 mEq/L (98-107); Glucose 116 mg/dL (70-105); Osmolality,Calculated 286 (280-300); Potassium 3.9 mEq/L (3.5-5.1); Sodium 137 mEq/L (136-145); eGFR For African Americans > 60 (> 60); eGFR For Non-African Americans > 60 (> 60)
[2021-07-02] MEDS ORDERED: Doxycycline 100 MG CAPSULE PO SCH (09:00)
[2021-07-02] MEDS ORDERED: Cholecalciferol (D-3) 1,000 UNIT (25MCG) TABLET PO SCH (09:00)
[2021-07-02] MEDS ORDERED: levoFLOXacin 750 MG TABLET PO SCH (09:00)
[2021-07-02] MEDS: Gabapentin 400 MG CAPSULE PO SCH (11:28)
[2021-07-02] MEDS: Baclofen 10 MG TABLET PO SCH (11:28)
[2021-07-02] MEDS: Nicotine 21 MG PATCH.TD24 TD SCH (11:28)
[2021-07-02 14:52] LABS: C-Reactive Protein < 5 mg/L (Less than 10)
== END 2021-07-02 11:48 | disposition home or self-care (01) | DRG 380 ==
LOC: 3ANU 16:25 → EMEROOARM 16:25 → SUATTDRO 21:29 → 3ANU 22:04
PROVIDERS: ADMIT Family Medicine; ATTEND Family Medicine

== ENCOUNTER 2021-08-07 17:35 | Inpatient (IN) ==
[2021-08-07] MEDS ORDERED: Ondansetron 4 MG/2 ML VIAL IVP ONE (18:13)
[2021-08-07] MEDS ORDERED: Isovue-370 500 ML BOTTLE IVP ONE (18:13)
[2021-08-07] MEDS ORDERED: 0.9 % Sodium Chloride 1,000 ML IVC ONE ×2 (18:13→20:27)
[2021-08-07] MEDS ORDERED: *HR* FentaNYL (PF) 100 MCG/2 ML VIAL IVP ONE (18:17)
[2021-08-07 18:24] LABS: Basophils # 0.1 K/mcL (0.0-0.2); Basophils % 0.6 %; Eosinophils % 0.1 %; Hematocrit 44.2 % (37.5-50.1); Hemoglobin 13.5 g/dL (12.9-16.9); Immature Granulocytes % 0.2 % (0-4); Lymphocytes % 10.3 %; Mean Corpuscular HGB Conc 30.5 g/dL (31.6-35.5); Mean Corpuscular Hemoglobin 25.1 pg (28.0-33.3); Mean Corpuscular Volume 82.3 fL (83.0-100.0); Mean Platelet Volume 10.5 fL (9.4-12.4); Monocytes # 0.7 K/mcL (0.0-1.3); Neutrophils # 7.6 K/mcL (1.6-8.9); Platelet Count 383 K/mcL (140-400); Red Blood Count 5.37 M/mcL (4.19-5.50); Red Cell Distribution Width 16.3 % (11.5-14.5); Segmented Neutrophils % 81.8 %; White Blood Count 9.3 K/mcL (4.3-11.1)
[2021-08-07 18:33] LABS: Alanine Aminotransferase 6 Units/L (7-52); Albumin 3.8 g/dL (3.5-5.7); Alkaline Phosphatase 94 Units/L (34-104); Aspartate Amino Transferase 11 Units/L (13-39); BUN/Creatinine Ratio 18 (6-26); Bilirubin,Direct 0.2 mg/dL (0.0-0.2); Bilirubin,Indirect 0.4 mg/dL (0.0-1.0); Bilirubin,Total 0.6 mg/dL (0.3-1.0); Blood Urea Nitrogen 11 mg/dL (6-20); Calcium 9.4 mg/dL (8.6-10.3); Carbon Dioxide 32 mEq/L (23-29); Chloride 99 mEq/L (98-107); Glucose 108 mg/dL (70-105); Lipase 7 Units/L (11-82); Osmolality,Calculated 292 (280-300); Potassium 3.4 mEq/L (3.5-5.1); Sodium 141 mEq/L (136-145); Total Protein 7.8 g/dL (6.4-8.9); eGFR For African Americans > 60 (> 60); eGFR For Non-African Americans > 60 (> 60)
[2021-08-07 19:22] LABS: Bacteria,Urine Many per hpf (None-Few); Bilirubin,Urine Negative (Negative); Blood,Urine Negative (Negative); Budding Yeast,Urine Moderate per hpf (None Seen); Clarity,Urine Ex.Turbid (Clear); Color,Urine Yellow (Yellow); Glucose,Urine (UA) Normal (Normal); Ketones,Urine 10 mg/dL (Negative); Leukocyte Esterase,Urine Large (Negative); Nitrite,Urine Positive (Negative); PH,Urine 8.5 pH Units (5.0-8.0); Protein,Urine >=600 mg/dL (Neg-Trace); RBC,Urine 50-100 per hpf (0-3); Specific Gravity,Urine 1.023 (1.010-1.025); Squamous Epithelial Cell,Urine Few per hpf (None-Few); Urobilinogen,Urine Normal (Normal); WBC,Urine TNTC per hpf (0-3)
[2021-08-07] MEDS ORDERED: cefTRIAXone 1,000 MG in 0.9 % Sodium Chloride Mini Bag 100 ML IVPB ONE (19:44)
[2021-08-07] MEDS ORDERED: Metoclopramide 10 MG/2 ML VIAL IVP ONE (20:40)
[2021-08-08] MEDS ORDERED: Acetaminophen 325 MG TABLET PO PRN (00:16)
[2021-08-08] MEDS ORDERED: Naloxone 0.4 MG/ML INJ IVP PRN (00:16)
[2021-08-08] MEDS ORDERED: Melatonin 3 MG TABLET PO PRN (00:16)
[2021-08-08] MEDS: 0.9 % Sodium Chloride 1,000 ML IVC SCH ×2 (00:29→08:03)
[2021-08-08 06:21] LABS: Basophils # 0.1 K/mcL (0.0-0.2); Basophils % 0.6 %; Eosinophils # 0.1 K/mcL (0.0-0.6); Eosinophils % 1.1 %; Hematocrit 36.1 % (37.5-50.1); Hemoglobin 10.8 g/dL (12.9-16.9); Immature Granulocytes % 0.4 % (0-4); Lymphocytes # 1.8 K/mcL (0.6-4.6); Lymphocytes % 21.7 %; Mean Corpuscular HGB Conc 29.9 g/dL (31.6-35.5); Mean Corpuscular Hemoglobin 25.3 pg (28.0-33.3); Mean Corpuscular Volume 84.5 fL (83.0-100.0); Mean Platelet Volume 10.2 fL (9.4-12.4); Monocytes # 0.7 K/mcL (0.0-1.3); Monocytes % 9.1 %; Neutrophils # 5.5 K/mcL (1.6-8.9); Platelet Count 292 K/mcL (140-400); Red Blood Count 4.27 M/mcL (4.19-5.50); Red Cell Distribution Width 16.4 % (11.5-14.5); Segmented Neutrophils % 67.1 %; White Blood Count 8.2 K/mcL (4.3-11.1)
[2021-08-08 06:44] LABS: Alanine Aminotransferase 4 Units/L (7-52); Albumin 2.9 g/dL (3.5-5.7); Alkaline Phosphatase 71 Units/L (34-104); Aspartate Amino Transferase 8 Units/L (13-39); BUN/Creatinine Ratio 17 (6-26); Bilirubin,Total 0.4 mg/dL (0.3-1.0); Blood Urea Nitrogen 11 mg/dL (6-20); Calcium 8.2 mg/dL (8.6-10.3); Carbon Dioxide 24 mEq/L (23-29); Chloride 109 mEq/L (98-107); Globulin 2.9 g/dL (2.4-3.5); Glucose 80 mg/dL (70-105); Magnesium 1.9 mg/dL (1.6-2.6); Osmolality,Calculated 286 (280-300); Phosphorous 2.6 mg/dL (2.7-4.5); Potassium 4.2 mEq/L (3.5-5.1); Sodium 139 mEq/L (136-145); Total Protein 5.8 g/dL (6.4-8.9); eGFR For African Americans > 60 (> 60); eGFR For Non-African Americans > 60 (> 60)
[2021-08-08] MEDS: cefTRIAXone 1,000 MG in Water for inj. (sterile) 10 ML IVP SCH (08:03)
[2021-08-08] MEDS: Pantoprazole 40 MG VIAL IVP SCH ×2 (12:09→16:11)
[2021-08-09] MEDS: Pantoprazole 40 MG VIAL IVP SCH ×2 (05:16→16:47)
[2021-08-09] MEDS: cefTRIAXone 1,000 MG in Water for inj. (sterile) 10 ML IVP SCH (08:53)
[2021-08-09] MEDS: 0.9 % Sodium Chloride 1,000 ML IVC SCH (14:06)
[2021-08-09] MEDS: Ondansetron 4 MG/2 ML VIAL IVP PRN (20:03)
[2021-08-10] MEDS: 0.9 % Sodium Chloride 1,000 ML IVC SCH (03:19)
[2021-08-10] MEDS: Pantoprazole 40 MG VIAL IVP SCH ×2 (06:39→17:07)
[2021-08-10 08:29] LABS: Basophils # 0.1 K/mcL (0.0-0.2); Eosinophils # 0.1 K/mcL (0.0-0.6); Eosinophils % 1.7 %; Hematocrit 34.8 % (37.5-50.1); Hemoglobin 10.9 g/dL (12.9-16.9); Immature Granulocytes % 0.4 % (0-4); Lymphocytes # 1.6 K/mcL (0.6-4.6); Lymphocytes % 22.9 %; Mean Corpuscular HGB Conc 31.3 g/dL (31.6-35.5); Mean Corpuscular Hemoglobin 26.1 pg (28.0-33.3); Mean Corpuscular Volume 83.5 fL (83.0-100.0); Mean Platelet Volume 10.4 fL (9.4-12.4); Monocytes # 0.5 K/mcL (0.0-1.3); Monocytes % 7.4 %; Neutrophils # 4.6 K/mcL (1.6-8.9); Platelet Count 289 K/mcL (140-400); Red Blood Count 4.17 M/mcL (4.19-5.50); Red Cell Distribution Width 16.5 % (11.5-14.5); Segmented Neutrophils % 66.6 %; White Blood Count 6.9 K/mcL (4.3-11.1)
[2021-08-10 08:45] LABS: Blood Urea Nitrogen 14 mg/dL (6-20); Calcium 8.1 mg/dL (8.6-10.3); Carbon Dioxide 21 mEq/L (23-29); Chloride 106 mEq/L (98-107); Glucose 42 mg/dL (70-105); Osmolality,Calculated 285 (280-300); Potassium 3.9 mEq/L (3.5-5.1); Sodium 139 mEq/L (136-145)
[2021-08-10] MEDS: cefTRIAXone 2,000 MG in Water for inj. (sterile) 10 ML IVP SCH (08:49)
[2021-08-10 08:51] LABS: BUN/Creatinine Ratio 25 (6-26); eGFR For African Americans > 60 (> 60); eGFR For Non-African Americans > 60 (> 60)
[2021-08-10] MEDS ORDERED: *HR* Propofol 200 MG/20 ML VIAL IVP ONE (12:49)
[2021-08-10] MEDS ORDERED: Lidocaine -MPF 2% 5 ML VIAL ONE (12:49)
[2021-08-10 12:52] LABS: Magnesium 1.8 mg/dL (1.6-2.6); Triglycerides 92 mg/dL (< 150)
[2021-08-11] MEDS: Pantoprazole 40 MG VIAL IVP SCH (05:30)
[2021-08-11] MEDS: Ondansetron 4 MG/2 ML VIAL IVP PRN (05:57)
[2021-08-11 06:19] LABS: Basophils % 0.6 %; Eosinophils # 0.2 K/mcL (0.0-0.6); Eosinophils % 2.7 %; Hematocrit 35.4 % (37.5-50.1); Hemoglobin 11.3 g/dL (12.9-16.9); Immature Granulocytes % 0.5 % (0-4); Lymphocytes # 1.3 K/mcL (0.6-4.6); Lymphocytes % 19.7 %; Mean Corpuscular HGB Conc 31.9 g/dL (31.6-35.5); Mean Corpuscular Hemoglobin 26.2 pg (28.0-33.3); Mean Corpuscular Volume 82.1 fL (83.0-100.0); Mean Platelet Volume 9.8 fL (9.4-12.4); Monocytes # 0.7 K/mcL (0.0-1.3); Monocytes % 10.8 %; Neutrophils # 4.2 K/mcL (1.6-8.9); Platelet Count 256 K/mcL (140-400); Red Blood Count 4.31 M/mcL (4.19-5.50); Red Cell Distribution Width 16.4 % (11.5-14.5); Segmented Neutrophils % 65.7 %; White Blood Count 6.4 K/mcL (4.3-11.1)
[2021-08-11 06:42] LABS: BUN/Creatinine Ratio 18 (6-26); Blood Urea Nitrogen 9 mg/dL (6-20); Carbon Dioxide 26 mEq/L (23-29); Chloride 104 mEq/L (98-107); Glucose 81 mg/dL (70-105); Osmolality,Calculated 284 (280-300); Potassium 3.6 mEq/L (3.5-5.1); Sodium 138 mEq/L (136-145); eGFR For African Americans > 60 (> 60); eGFR For Non-African Americans > 60 (> 60)
[2021-08-11] MEDS: cefTRIAXone 2,000 MG in Water for inj. (sterile) 10 ML IVP SCH (08:24)
[2021-08-11] MEDS ORDERED: Doxycycline 100 MG in 0.9 % Sodium Chloride Mini Bag 100 ML IVPB SCH (09:00)
[2021-08-11 11:00] LABS: Magnesium 1.7 mg/dL (1.6-2.6); Phosphorous 2.5 mg/dL (2.7-4.5)
[2021-08-11 11:05] VITALS: TEMP 97.6; O2SAT 98
[2021-08-11] MEDS ORDERED: E-Z-PAQUE (BARIUM SULF) SUSP 1 BOTTLE PO ONE (14:04)
[2021-08-11 14:34] VITALS: BP 104/68; PULSE 70
== END 2021-08-11 18:27 | disposition home or self-care (01) | DRG 254 ==
LOC: EMEROOARM 17:35 → 3BNU 17:35 → SUATTDRO 20:51 → 3BNU 21:45
PROVIDERS: ADMIT Internal Medicine; ATTEND Family Medicine

== ENCOUNTER 2021-11-21 13:28 | Observation (INO) ==
[2021-11-21] MEDS ORDERED: 0.9 % Sodium Chloride 1,000 ML IVC ONE (13:36)
[2021-11-21] MEDS ORDERED: Acetaminophen 325 MG TABLET PO ONE (13:59)
[2021-11-21 14:08] LABS: Hematocrit 32.1 % (37.5-50.1); Hemoglobin 9.4 g/dL (12.9-16.9); Mean Corpuscular HGB Conc 29.3 g/dL (31.6-35.5); Mean Corpuscular Hemoglobin 23.7 pg (28.0-33.3); Mean Corpuscular Volume 80.9 fL (83.0-100.0); Monocytes # 0.6 K/mcL (0.0-1.3); Platelet Count 409 K/mcL (140-400); Red Blood Count 3.97 M/mcL (4.19-5.50)
[2021-11-21 14:16] LABS: INR 1.4; Prothrombin Time 15.1 Seconds (9.4-12.1)
[2021-11-21 14:19] LABS: Activated Partial Thrombo Time 36.5 Seconds (26.0-36.0)
[2021-11-21 14:29] LABS: Lymphocytes # 1.1 K/mcL (0.6-4.6); Neutrophils # 5.3 K/mcL (1.6-8.9)
[2021-11-21 14:30] LABS: Alanine Aminotransferase 8 Units/L (7-52); Albumin 2.8 g/dL (3.5-5.7); Albumin/Globulin Ratio 0.7 (1.1-2.2); Alkaline Phosphatase 85 Units/L (34-104); Amylase 20 Units/L (29-103); Aspartate Amino Transferase 11 Units/L (13-39); BUN/Creatinine Ratio 24 (6-26); Bilirubin,Direct 0.1 mg/dL (0.0-0.2); Bilirubin,Indirect 0.2 mg/dL (0.0-1.0); Bilirubin,Total 0.3 mg/dL (0.3-1.0); Blood Urea Nitrogen 13 mg/dL (6-20); Calcium 8.3 mg/dL (8.6-10.3); Carbon Dioxide 31 mEq/L (23-29); Chloride 102 mEq/L (98-107); Globulin 3.8 g/dL (2.4-3.5); Glucose 95 mg/dL (70-105); Lipase 9 Units/L (11-82); Osmolality,Calculated 284 (280-300); Potassium 3.8 mEq/L (3.5-5.1); Sodium 137 mEq/L (136-145); Total Protein 6.6 g/dL (6.4-8.9); eGFR For African Americans > 60 (> 60); eGFR For Non-African Americans > 60 (> 60)
[2021-11-21 14:36] LABS: Bilirubin,Urine Negative (Negative); Blood,Urine Large (Negative); Clarity,Urine Turbid (Clear); Color,Urine Light-Orange (Yellow); Glucose,Urine (UA) Normal (Normal); Ketones,Urine Negative (Negative); Leukocyte Esterase,Urine Small (Negative); Nitrite,Urine Negative (Negative); PH,Urine 7.5 pH Units (5.0-8.0); Protein,Urine 100 mg/dL (Neg-Trace); RBC,Urine TNTC per hpf (0-3); Specific Gravity,Urine 1.019 (1.010-1.025); Urobilinogen,Urine Normal (Normal); WBC,Urine 0-3 per hpf (0-3)
[2021-11-21] MEDS ORDERED: Isovue-370 500 ML BOTTLE IVP ONE (15:04)
[2021-11-21] MEDS ORDERED: Melatonin 3 MG TABLET PO PRN (16:32)
[2021-11-21] MEDS ORDERED: Naloxone 0.4 MG/ML INJ IVP PRN (16:32)
[2021-11-21] MEDS ORDERED: 0.9 % Sodium Chloride 500 ML IVC ONE (18:01)
[2021-11-21] MEDS: traZODone 50 MG TABLET PO SCH (20:34)
[2021-11-21] MEDS: Ondansetron ODT 4 MG TAB.RAPDIS SL PRN (20:34)
[2021-11-21] MEDS: Sennosides/Docusate Sodium TABLET PO SCH (20:34)
[2021-11-21] MEDS: *HR* Heparin 5,000 UNIT/ML VIAL SQ SCH (20:36)
[2021-11-21 22:48] LABS: Hemoglobin 7.9 g/dL (12.9-16.9); Mean Corpuscular HGB Conc 30.4 g/dL (31.6-35.5); Mean Corpuscular Hemoglobin 24.5 pg (28.0-33.3); Mean Corpuscular Volume 80.7 fL (83.0-100.0); Mean Platelet Volume 10.3 fL (9.4-12.4); Platelet Count 366 K/mcL (140-400); Red Blood Count 3.22 M/mcL (4.19-5.50); Red Cell Distribution Width 18.1 % (11.5-14.5); White Blood Count 6.9 K/mcL (4.3-11.1)
[2021-11-22 03:31] LABS: Eosinophils % 2.6 %; Hematocrit 25.7 % (37.5-50.1); Hemoglobin 7.5 g/dL (12.9-16.9); Immature Granulocytes % 0.3 % (0-4); Lymphocytes % 24.6 %; Mean Corpuscular HGB Conc 29.2 g/dL (31.6-35.5); Mean Corpuscular Hemoglobin 23.5 pg (28.0-33.3); Mean Corpuscular Volume 80.6 fL (83.0-100.0); Mean Platelet Volume 10.3 fL (9.4-12.4); Monocytes % 8.2 %; Platelet Count 374 K/mcL (140-400); Red Blood Count 3.19 M/mcL (4.19-5.50); Red Cell Distribution Width 18.1 % (11.5-14.5); Segmented Neutrophils % 63.5 %; White Blood Count 6.2 K/mcL (4.3-11.1)
[2021-11-22 03:32] LABS: Basophils # 0.1 K/mcL (0.0-0.2); Basophils % 0.8 %; Eosinophils # 0.2 K/mcL (0.0-0.6); Lymphocytes # 1.5 K/mcL (0.6-4.6); Monocytes # 0.5 K/mcL (0.0-1.3); Neutrophils # 3.9 K/mcL (1.6-8.9)
[2021-11-22] MEDS: Acetaminophen 325 MG TABLET PO PRN ×2 (03:42→14:51)
[2021-11-22 03:44] LABS: BUN/Creatinine Ratio 19 (6-26); Blood Urea Nitrogen 11 mg/dL (6-20); Calcium 7.6 mg/dL (8.6-10.3); Carbon Dioxide 28 mEq/L (23-29); Chloride 107 mEq/L (98-107); Glucose 142 mg/dL (70-105); Magnesium 1.9 mg/dL (1.6-2.6); Osmolality,Calculated 292 (280-300); Potassium 3.8 mEq/L (3.5-5.1); Sodium 140 mEq/L (136-145); eGFR For African Americans > 60 (> 60); eGFR For Non-African Americans > 60 (> 60)
[2021-11-22 04:21] LABS: Anisocytosis 1+ (Not Present); Platelet Estimate Normal (Normal)
[2021-11-22 04:22] LABS: Polychromasia 1+ (Not Present)
[2021-11-22] MEDS: *HR* Heparin 5,000 UNIT/ML VIAL SQ SCH ×3 (06:27→20:12)
[2021-11-22] MEDS: Zinc Sulfate 220 MG CAPSULE PO SCH (09:13)
[2021-11-22] MEDS: Ascorbic Acid 500 MG TABLET PO SCH ×2 (09:14→20:15)
[2021-11-22] MEDS: ARIPiprazole 2 MG TABLET PO SCH (09:14)
[2021-11-22] MEDS: Sennosides/Docusate Sodium TABLET PO SCH ×2 (09:14→20:15)
[2021-11-22] MEDS ORDERED: 0.9 % Sodium Chloride 250 ML ONE (09:16)
[2021-11-22] MEDS: polyethylene glycoL 3350 17 GM POWD.PACK PO SCH (09:19)
[2021-11-22] MEDS: Piperacillin/Tazobactam 3.375 GM in 0.9 % Sodium Chloride Mini Bag 100 ML IVPB SCH ×3 (09:31→23:33)
[2021-11-22] MEDS: Ondansetron ODT 4 MG TAB.RAPDIS SL PRN ×2 (09:32→20:15)
[2021-11-22] MEDS: traZODone 50 MG TABLET PO SCH (20:15)
[2021-11-23] MEDS: *HR* Heparin 5,000 UNIT/ML VIAL SQ SCH ×3 (05:33→21:44)
[2021-11-23] MEDS: ARIPiprazole 2 MG TABLET PO SCH (09:58)
[2021-11-23] MEDS: Sennosides/Docusate Sodium TABLET PO SCH ×2 (09:58→21:43)
[2021-11-23] MEDS: Zinc Sulfate 220 MG CAPSULE PO SCH (10:00)
[2021-11-23] MEDS: Ondansetron ODT 4 MG TAB.RAPDIS SL PRN ×2 (10:00→21:44)
[2021-11-23] MEDS: Acetaminophen 325 MG TABLET PO PRN (10:00)
[2021-11-23] MEDS: Ascorbic Acid 500 MG TABLET PO SCH ×2 (10:00→21:43)
[2021-11-23] MEDS: Piperacillin/Tazobactam 3.375 GM in 0.9 % Sodium Chloride Mini Bag 100 ML IVPB SCH ×2 (10:07→18:38)
[2021-11-23] MEDS: polyethylene glycoL 3350 17 GM POWD.PACK PO SCH (11:48)
[2021-11-23] MEDS: Gabapentin 400 MG CAPSULE PO SCH ×2 (14:23→21:44)
[2021-11-23] MEDS: methocarbamoL 500 MG TABLET PO SCH ×2 (14:23→21:44)
[2021-11-23] MEDS: Baclofen 10 MG TABLET PO SCH ×2 (14:24→21:43)
[2021-11-23] MEDS ORDERED: *HR* Alteplase (Cathflo) 2 MG VIAL IVP PRN (14:53)
[2021-11-23] MEDS: traZODone 50 MG TABLET PO SCH (21:43)
[2021-11-24] MEDS: Acetaminophen 325 MG TABLET PO PRN ×2 (02:09→15:29)
[2021-11-24] MEDS: Piperacillin/Tazobactam 3.375 GM in 0.9 % Sodium Chloride Mini Bag 100 ML IVPB SCH ×3 (03:10→21:12)
[2021-11-24 03:16] LABS: Basophils # 0.1 K/mcL (0.0-0.2); Basophils % 0.8 %; Eosinophils # 0.2 K/mcL (0.0-0.6); Eosinophils % 2.4 %; Hematocrit 24.8 % (37.5-50.1); Hemoglobin 7.2 g/dL (12.9-16.9); Immature Granulocytes % 0.3 % (0-4); Lymphocytes # 1.8 K/mcL (0.6-4.6); Mean Corpuscular Hemoglobin 23.5 pg (28.0-33.3); Mean Platelet Volume 10.3 fL (9.4-12.4); Monocytes # 0.4 K/mcL (0.0-1.3); Monocytes % 6.9 %; Neutrophils # 3.8 K/mcL (1.6-8.9); Platelet Count 357 K/mcL (140-400); Red Blood Count 3.06 M/mcL (4.19-5.50); Red Cell Distribution Width 18.6 % (11.5-14.5); Segmented Neutrophils % 60.6 %; White Blood Count 6.2 K/mcL (4.3-11.1)
[2021-11-24 03:21] LABS: Anisocytosis 1+ (Not Present); Platelet Estimate Normal (Normal)
[2021-11-24 03:35] LABS: BUN/Creatinine Ratio 17 (6-26); Blood Urea Nitrogen 13 mg/dL (6-20); Carbon Dioxide 27 mEq/L (23-29); Chloride 106 mEq/L (98-107); Glucose 123 mg/dL (70-105); Osmolality,Calculated 289 (280-300); Potassium 3.9 mEq/L (3.5-5.1); Sodium 139 mEq/L (136-145); eGFR For African Americans > 60 (> 60); eGFR For Non-African Americans > 60 (> 60)
[2021-11-24] MEDS: *HR* Heparin 5,000 UNIT/ML VIAL SQ SCH ×3 (05:30→21:19)
[2021-11-24] MEDS: Sennosides/Docusate Sodium TABLET PO SCH ×2 (08:05→21:08)
[2021-11-24] MEDS: ARIPiprazole 2 MG TABLET PO SCH (08:05)
[2021-11-24] MEDS: Baclofen 10 MG TABLET PO SCH ×3 (08:05→21:09)
[2021-11-24] MEDS: methocarbamoL 500 MG TABLET PO SCH ×3 (08:05→21:09)
[2021-11-24] MEDS: Gabapentin 400 MG CAPSULE PO SCH ×3 (08:05→21:08)
[2021-11-24] MEDS: Zinc Sulfate 220 MG CAPSULE PO SCH (08:06)
[2021-11-24] MEDS: polyethylene glycoL 3350 17 GM POWD.PACK PO SCH (08:06)
[2021-11-24] MEDS: Ascorbic Acid 500 MG TABLET PO SCH ×2 (08:06→21:07)
[2021-11-24] MEDS: Ondansetron ODT 4 MG TAB.RAPDIS SL PRN (10:17)
[2021-11-25] MEDS: Piperacillin/Tazobactam 3.375 GM in 0.9 % Sodium Chloride Mini Bag 100 ML IVPB SCH ×3 (01:03→17:32)
[2021-11-25] MEDS: Acetaminophen 325 MG TABLET PO PRN ×2 (01:05→14:31)
[2021-11-25] MEDS: Ondansetron ODT 4 MG TAB.RAPDIS SL PRN ×3 (05:19→22:06)
[2021-11-25] MEDS: *HR* Heparin 5,000 UNIT/ML VIAL SQ SCH ×3 (05:20→20:41)
[2021-11-25 05:41] LABS: Basophils # 0.1 K/mcL (0.0-0.2); Basophils % 0.8 %; Eosinophils # 0.2 K/mcL (0.0-0.6); Eosinophils % 3.2 %; Hematocrit 24.7 % (37.5-50.1); Hemoglobin 7.4 g/dL (12.9-16.9); Immature Granulocytes % 0.5 % (0-4); Lymphocytes # 1.5 K/mcL (0.6-4.6); Lymphocytes % 23.1 %; Mean Corpuscular Hemoglobin 24.2 pg (28.0-33.3); Mean Corpuscular Volume 80.7 fL (83.0-100.0); Monocytes # 0.5 K/mcL (0.0-1.3); Monocytes % 8.1 %; Neutrophils # 4.1 K/mcL (1.6-8.9); Platelet Count 333 K/mcL (140-400); Red Blood Count 3.06 M/mcL (4.19-5.50); Red Cell Distribution Width 18.9 % (11.5-14.5); Segmented Neutrophils % 64.3 %; White Blood Count 6.3 K/mcL (4.3-11.1)
[2021-11-25 06:07] LABS: BUN/Creatinine Ratio 23 (6-26); Blood Urea Nitrogen 15 mg/dL (6-20); Calcium 8.1 mg/dL (8.6-10.3); Carbon Dioxide 28 mEq/L (23-29); Chloride 104 mEq/L (98-107); Glucose 95 mg/dL (70-105); Osmolality,Calculated 283 (280-300); Potassium 4.3 mEq/L (3.5-5.1); Sodium 136 mEq/L (136-145); eGFR For African Americans > 60 (> 60); eGFR For Non-African Americans > 60 (> 60)
[2021-11-25 06:12] LABS: Anisocytosis 1+ (Not Present); Hypochromasia Present (Not Present); Platelet Estimate Normal (Normal); Polychromasia 1+ (Not Present); Reactive Lymphocytes Present (Not Present)
[2021-11-25] MEDS: Sennosides/Docusate Sodium TABLET PO SCH ×2 (10:21→20:41)
[2021-11-25] MEDS: Baclofen 10 MG TABLET PO SCH ×3 (10:21→20:41)
[2021-11-25] MEDS: Ascorbic Acid 500 MG TABLET PO SCH ×2 (10:21→20:41)
[2021-11-25] MEDS: Zinc Sulfate 220 MG CAPSULE PO SCH (10:21)
[2021-11-25] MEDS: methocarbamoL 500 MG TABLET PO SCH ×3 (10:21→20:41)
[2021-11-25] MEDS: Gabapentin 400 MG CAPSULE PO SCH ×3 (10:22→20:41)
[2021-11-25] MEDS: polyethylene glycoL 3350 17 GM POWD.PACK PO SCH (10:39)
[2021-11-26] MEDS: Piperacillin/Tazobactam 3.375 GM in 0.9 % Sodium Chloride Mini Bag 100 ML IVPB SCH ×3 (02:06→19:27)
[2021-11-26 05:43] LABS: Hematocrit 26.3 % (37.5-50.1); Hemoglobin 7.7 g/dL (12.9-16.9)
[2021-11-26] MEDS: *HR* Heparin 5,000 UNIT/ML VIAL SQ SCH ×3 (06:16→23:19)
[2021-11-26] MEDS: Zinc Sulfate 220 MG CAPSULE PO SCH (08:19)
[2021-11-26] MEDS: Sennosides/Docusate Sodium TABLET PO SCH ×2 (08:19→20:15)
[2021-11-26] MEDS: methocarbamoL 500 MG TABLET PO SCH ×3 (08:19→20:15)
[2021-11-26] MEDS: Gabapentin 400 MG CAPSULE PO SCH ×3 (08:20→20:15)
[2021-11-26] MEDS: Ascorbic Acid 500 MG TABLET PO SCH ×2 (08:20→20:15)
[2021-11-26] MEDS: Baclofen 10 MG TABLET PO SCH ×3 (08:20→20:15)
[2021-11-26] MEDS: polyethylene glycoL 3350 17 GM POWD.PACK PO SCH (08:21)
[2021-11-26] MEDS: Ondansetron ODT 4 MG TAB.RAPDIS SL PRN ×2 (09:30→20:21)
[2021-11-26 14:17] LABS: Adenovirus Not Detected (Not Detect); Bordetella Pertussis Not Detected (Not Detect); Chlamydophila pneumoniae Not Detected (Not Detect); Coronavirus 229E Not Detected (Not Detect); Coronavirus HKU1 Not Detected (Not Detect); Coronavirus NL63 Not Detected (Not Detect); Coronavirus OC43 Not Detected (Not Detect); Human Metapneumovirus Not Detected (Not Detect); Human Rhinovirus/Enterovirus Not Detected (Not Detect); Influenza A Subtype 2009 H1 Not Detected (Not Detect); Influenza B Not Detected (Not Detect); Mycoplasma pneumoniae Not Detected (Not Detect); Parainfluenza Virus 1 Not Detected (Not Detect); Parainfluenza Virus 2 Not Detected (Not Detect); Parainfluenza Virus 3 Not Detected (Not Detect); Parainfluenza Virus 4 Not Detected (Not Detect); Respiratory Syncytial Virus Not Detected (Not Detect); SARS-CoV-2 Not Detected (Not Detect)
[2021-11-26 19:31] VITALS: BP 102/63; PULSE 129; TEMP 99; O2SAT 95
[2021-11-26] MEDS ORDERED: Vancomycin 1,250 MG/262.5 ML IV.SOLN IVPB SCH (21:00)
== END 2021-11-26 22:46 ==
LOC: EMEROOARM 13:28 → 3ANU 13:28 → SUATTDRO 15:00 → 3ANU 15:55
PROVIDERS: ADMIT Internal Medicine; ATTEND Internal Medicine

== ENCOUNTER 2021-12-24 18:53 | Observation (INO) ==
[2021-12-24 20:31] LABS: Bacteria,Urine Many per hpf (None-Few); Bilirubin,Urine Negative (Negative); Blood,Urine Large (Negative); Calcium Oxalate Crystals,Urine Present per hpf; Clarity,Urine Ex.Turbid (Clear); Color,Urine Yellow (Yellow); Glucose,Urine (UA) Normal (Normal); Hyaline Casts,Urine Few per lpf (None Seen); Ketones,Urine Trace mg/dL (Negative); Leukocyte Esterase,Urine Large (Negative); Mucus,Urine Few per lpf (None-Few); Nitrite,Urine Positive (Negative); Protein,Urine 70 mg/dL (Neg-Trace); RBC,Urine TNTC per hpf (0-3); Specific Gravity,Urine 1.025 (1.010-1.025); Urobilinogen,Urine Normal (Normal); WBC,Urine TNTC per hpf (0-3)
[2021-12-24] MEDS ORDERED: 0.9 % Sodium Chloride 500 ML IV ONE (21:03)
[2021-12-24] MEDS ORDERED: cefTRIAXone 1,000 MG in Water for inj. (sterile) 10 ML IVP ONE (21:03)
[2021-12-24 21:33] LABS: Basophils # 0.1 K/mcL (0.0-0.2); Basophils % 0.7 %; Eosinophils # 0.1 K/mcL (0.0-0.6); Eosinophils % 0.7 %; Hematocrit 36.1 % (37.5-50.1); Hemoglobin 10.6 g/dL (12.9-16.9); Immature Granulocytes % 0.5 % (0-4); Lymphocytes # 1.8 K/mcL (0.6-4.6); Lymphocytes % 16.6 %; Mean Corpuscular HGB Conc 29.4 g/dL (31.6-35.5); Mean Corpuscular Hemoglobin 22.5 pg (28.0-33.3); Mean Corpuscular Volume 76.6 fL (83.0-100.0); Mean Platelet Volume 10.2 fL (9.4-12.4); Monocytes # 0.7 K/mcL (0.0-1.3); Monocytes % 6.6 %; Platelet Count 507 K/mcL (140-400); Red Blood Count 4.71 M/mcL (4.19-5.50); Red Cell Distribution Width 17.6 % (11.5-14.5); Segmented Neutrophils % 74.9 %; White Blood Count 10.6 K/mcL (4.3-11.1)
[2021-12-24 21:49] LABS: Alanine Aminotransferase 11 Units/L (7-52); Albumin 3.4 g/dL (3.5-5.7); Albumin/Globulin Ratio 0.8 (1.1-2.2); Alkaline Phosphatase 119 Units/L (34-104); Aspartate Amino Transferase 14 Units/L (13-39); BUN/Creatinine Ratio 23 (6-26); Bilirubin,Total 0.3 mg/dL (0.3-1.0); Blood Urea Nitrogen 14 mg/dL (6-20); Calcium 9.2 mg/dL (8.6-10.3); Carbon Dioxide 27 mEq/L (23-29); Chloride 101 mEq/L (98-107); Globulin 4.5 g/dL (2.4-3.5); Glucose 84 mg/dL (70-105); Osmolality,Calculated 284 (280-300); Potassium 3.7 mEq/L (3.5-5.1); Sodium 137 mEq/L (136-145); Total Protein 7.9 g/dL (6.4-8.9); eGFR For African Americans > 60 (> 60); eGFR For Non-African Americans > 60 (> 60)
[2021-12-24] MEDS ORDERED: Isovue-370 500 ML BOTTLE IVP ONE (22:56)
[2021-12-25] MEDS ORDERED: Acetaminophen 325 MG TABLET PO PRN (01:27)
[2021-12-25] MEDS ORDERED: Ondansetron ODT 4 MG TAB.RAPDIS SL PRN (01:27)
[2021-12-25] MEDS ORDERED: Melatonin 3 MG TABLET PO PRN (01:27)
[2021-12-25] MEDS ORDERED: Naloxone 0.4 MG/ML INJ IVP PRN (01:27)
[2021-12-25 03:36] LABS: Basophils # 0.1 K/mcL (0.0-0.2); Eosinophils # 0.2 K/mcL (0.0-0.6); Eosinophils % 2.3 %; Hematocrit 34.9 % (37.5-50.1); Hemoglobin 10.3 g/dL (12.9-16.9); Immature Granulocytes % 0.5 % (0-4); Lymphocytes # 1.7 K/mcL (0.6-4.6); Lymphocytes % 20.5 %; Mean Corpuscular HGB Conc 29.5 g/dL (31.6-35.5); Mean Corpuscular Hemoglobin 22.4 pg (28.0-33.3); Mean Corpuscular Volume 75.9 fL (83.0-100.0); Mean Platelet Volume 10.3 fL (9.4-12.4); Monocytes # 0.7 K/mcL (0.0-1.3); Monocytes % 8.3 %; Neutrophils # 5.5 K/mcL (1.6-8.9); Platelet Count 471 K/mcL (140-400); Red Cell Distribution Width 17.7 % (11.5-14.5); Segmented Neutrophils % 67.4 %; White Blood Count 8.2 K/mcL (4.3-11.1)
[2021-12-25 03:45] LABS: Alanine Aminotransferase 10 Units/L (7-52); Albumin 3.2 g/dL (3.5-5.7); Albumin/Globulin Ratio 0.8 (1.1-2.2); Alkaline Phosphatase 113 Units/L (34-104); Aspartate Amino Transferase 13 Units/L (13-39); BUN/Creatinine Ratio 22 (6-26); Bilirubin,Total 0.2 mg/dL (0.3-1.0); Blood Urea Nitrogen 12 mg/dL (6-20); Carbon Dioxide 25 mEq/L (23-29); Chloride 103 mEq/L (98-107); Globulin 3.8 g/dL (2.4-3.5); Glucose 92 mg/dL (70-105); Osmolality,Calculated 285 (280-300); Phosphorous 3.5 mg/dL (2.7-4.5); Potassium 3.7 mEq/L (3.5-5.1); Sodium 138 mEq/L (136-145); eGFR For African Americans > 60 (> 60); eGFR For Non-African Americans > 60 (> 60)
[2021-12-25 03:56] LABS: INR 1.3; Prothrombin Time 14.6 Seconds (9.4-12.1)
[2021-12-25 03:59] LABS: Activated Partial Thrombo Time 36.2 Seconds (26.0-36.0)
[2021-12-25 04:08] LABS: Anisocytosis 1+ (Not Present); Hypochromasia Present (Not Present); Large Platelets Present (Not Present); Polychromasia 1+ (Not Present); Reactive Lymphocytes Present (Not Present)
[2021-12-25] MEDS: Cefepime HCl 2,000 MG in 0.9 % Sodium Chloride 10 ML IVP SCH ×2 (06:19→17:36)
[2021-12-25] MEDS ORDERED: Piperacillin/Tazobactam 3.375 GM in 0.9 % Sodium Chloride Mini Bag 100 ML IVPB SCH (08:00)
[2021-12-25] MEDS: Baclofen 10 MG TABLET PO SCH ×3 (14:38→20:05)
[2021-12-25] MEDS: Sennosides 8.6 MG TABLET PO SCH ×2 (14:38→15:22)
[2021-12-25] MEDS: ARIPiprazole 2 MG TABLET PO SCH ×2 (14:38→15:22)
[2021-12-25] MEDS: Gabapentin 400 MG CAPSULE PO SCH ×3 (14:38→20:04)
[2021-12-25] MEDS: *HR* OxyCODONE Immed Rel 5 MG TABLET PO SCH ×3 (14:38→20:04)
[2021-12-25] MEDS: methocarbamoL 500 MG TABLET PO SCH ×3 (15:15→20:04)
[2021-12-25] MEDS: Ascorbic Acid 500 MG TABLET PO SCH (20:08)
[2021-12-25] MEDS ORDERED: traZODone 50 MG TABLET PO SCH (21:00)
[2021-12-25] MEDS ORDERED: Melatonin 3 MG TABLET PO SCH (21:00)
[2021-12-26] MEDS: *HR* OxyCODONE Immed Rel 5 MG TABLET PO SCH ×2 (02:00→08:32)
[2021-12-26] MEDS: Cefepime HCl 2,000 MG in 0.9 % Sodium Chloride 10 ML IVP SCH (05:46)
[2021-12-26] MEDS ORDERED: *HR* Enoxaparin 40 MG/0.4 ML SYRINGE SQ SCH (06:00)
[2021-12-26] MEDS: ARIPiprazole 2 MG TABLET PO SCH (08:32)
[2021-12-26] MEDS: Baclofen 10 MG TABLET PO SCH (08:32)
[2021-12-26] MEDS: Ascorbic Acid 500 MG TABLET PO SCH (08:33)
[2021-12-26] MEDS: methocarbamoL 500 MG TABLET PO SCH (08:33)
[2021-12-26] MEDS: Sennosides 8.6 MG TABLET PO SCH (08:33)
[2021-12-26] MEDS: Gabapentin 400 MG CAPSULE PO SCH (08:33)
[2021-12-26] MEDS ORDERED: Lactobacillus 1 EACH CAP.SPRINK PO SCH (09:00)
[2021-12-26] MEDS ORDERED: polyethylene glycoL 3350 17 GM POWD.PACK PO SCH (09:00)
[2021-12-26 10:59] VITALS: BP 97/64; PULSE 85; TEMP 98.8; O2SAT 97
== END 2021-12-26 13:07 | disposition home health service (06) ==
LOC: 2ANU 18:53 → EMEROOARM 18:53 → SUATTDRO 12-25 01:14 → 2ANU 12-25 02:12
PROVIDERS: ADMIT Internal Medicine; ATTEND Internal Medicine

== ENCOUNTER 2022-04-13 16:14 | Inpatient (IN) ==
[2022-04-13] MEDS ORDERED: *HR* HYDROcodone/Acet 5/325 mg TABLET PO ONE (16:21)
[2022-04-13 17:01] LABS: Amorphous Sediment,Urine Few per hpf (None-Few); Bilirubin,Urine Negative (Negative); Blood,Urine Small (Negative); Clarity,Urine Ex.Turbid (Clear); Color,Urine Dark-Yellow (Yellow); Glucose,Urine (UA) Normal (Normal); Ketones,Urine Trace mg/dL (Negative); Leukocyte Esterase,Urine Large (Negative); Mucus,Urine Few per lpf (None-Few); Nitrite,Urine Positive (Negative); PH,Urine 7.5 pH Units (5.0-8.0); Protein,Urine >=600 mg/dL (Neg-Trace); RBC,Urine TNTC per hpf (0-3); Specific Gravity,Urine 1.022 (1.010-1.025); Urobilinogen,Urine Normal (Normal); WBC,Urine TNTC per hpf (0-3)
[2022-04-13 17:41] LABS: Basophils # 0.1 K/mcL (0.0-0.2); Basophils % 0.5 %; Eosinophils % 0.1 %; Hematocrit 36.5 % (37.5-50.1); Hemoglobin 10.7 g/dL (12.9-16.9); Immature Granulocytes % 0.5 % (0-4); Lymphocytes % 6.6 %; Mean Corpuscular HGB Conc 29.3 g/dL (31.6-35.5); Mean Corpuscular Volume 68.2 fL (83.0-100.0); Mean Platelet Volume 9.9 fL (9.4-12.4); Monocytes % 6.9 %; Neutrophils # 12.8 K/mcL (1.6-8.9); Platelet Count 429 K/mcL (140-400); Red Blood Count 5.35 M/mcL (4.19-5.50); Red Cell Distribution Width 20.5 % (11.5-14.5); Segmented Neutrophils % 85.4 %
[2022-04-13] MEDS ORDERED: Cefepime HCl 2,000 MG in 0.9 % Sodium Chloride 10 ML IVP ONE (17:48)
[2022-04-13] MEDS ORDERED: 0.9 % Sodium Chloride 1,000 ML IVC ONE (17:48)
[2022-04-13 17:58] LABS: BUN/Creatinine Ratio 25 (6-26); Blood Urea Nitrogen 17 mg/dL (6-20); Calcium 8.9 mg/dL (8.6-10.3); Carbon Dioxide 27 mEq/L (23-29); Chloride 102 mEq/L (98-107); Glucose 109 mg/dL (70-105); Osmolality,Calculated 282 (280-300); Sodium 135 mEq/L (136-145); eGFR For African Americans > 60 (> 60); eGFR For Non-African Americans > 60 (> 60)
[2022-04-13] MEDS ORDERED: Acetaminophen 325 MG TABLET PO PRN (18:09)
[2022-04-13] MEDS ORDERED: Naloxone 0.4 MG/ML INJ IVP PRN (18:09)
[2022-04-13 18:29] LABS: Hypochromasia Present (Not Present); Microcytosis Present (Not Present)
[2022-04-13 18:30] LABS: Target Cells 1+ (Not Present)
[2022-04-13 18:31] LABS: Large Platelets Present (Not Present)
[2022-04-13] MEDS: Ondansetron 4 MG/2 ML VIAL IVP PRN (19:59)
[2022-04-13 22:01] LABS: Amphetamine Screen,Urine Negative ng/mL (Cutoff=1000); Barbiturate Screen,Urine Negative ng/mL (Cutoff=200); Benzodiazepines Screen,Urine Negative ng/mL (Cutoff=200); Cannabinoid Screen,Urine Positive ng/mL (Cutoff = 50); Cocaine Screen,Urine Negative ng/mL (Cutoff= 300); Opiate Screen,Urine Negative ng/mL (Cutoff=300); Phencyclidine Screen,Urine Negative ng/mL (Cutoff=25)
[2022-04-13] MEDS ORDERED: *HR* Promethazine 25 MG/ML VIAL IM ONE (23:06)
[2022-04-13] MEDS: *HR* HYDROcodone/Acet 5/325 mg TABLET PO PRN (23:25)
[2022-04-14 06:30] LABS: Basophils # 0.1 K/mcL (0.0-0.2); Basophils % 0.5 %; Eosinophils # 0.1 K/mcL (0.0-0.6); Eosinophils % 1.2 %; Hematocrit 33.2 % (37.5-50.1); Hemoglobin 9.8 g/dL (12.9-16.9); Immature Granulocytes % 0.3 % (0-4); Lymphocytes # 1.4 K/mcL (0.6-4.6); Lymphocytes % 12.1 %; Mean Corpuscular HGB Conc 29.5 g/dL (31.6-35.5); Mean Corpuscular Volume 67.9 fL (83.0-100.0); Mean Platelet Volume 10.5 fL (9.4-12.4); Monocytes # 0.7 K/mcL (0.0-1.3); Monocytes % 5.5 %; Neutrophils # 9.6 K/mcL (1.6-8.9); Platelet Count 417 K/mcL (140-400); Red Blood Count 4.89 M/mcL (4.19-5.50); Red Cell Distribution Width 20.4 % (11.5-14.5); Segmented Neutrophils % 80.4 %; White Blood Count 11.9 K/mcL (4.3-11.1)
[2022-04-14] MEDS: *HR* Heparin 5,000 UNIT/ML VIAL SQ SCH ×2 (06:38→17:32)
[2022-04-14 06:47] LABS: BUN/Creatinine Ratio 24 (6-26); Blood Urea Nitrogen 14 mg/dL (6-20); Calcium 8.6 mg/dL (8.6-10.3); Carbon Dioxide 24 mEq/L (23-29); Chloride 104 mEq/L (98-107); Glucose 88 mg/dL (70-105); Magnesium 1.7 mg/dL (1.6-2.6); Osmolality,Calculated 280 (280-300); Phosphorous 3.2 mg/dL (2.7-4.5); Sodium 135 mEq/L (136-145); eGFR For African Americans > 60 (> 60); eGFR For Non-African Americans > 60 (> 60)
[2022-04-14 06:53] LABS: Anisocytosis 2+ (Not Present)
[2022-04-14 06:54] LABS: Hypochromasia Present (Not Present); Poikilocytosis 1+ (Not Present)
[2022-04-14] MEDS: Nicotine 21 MG PATCH.TD24 TD SCH ×2 (07:20→08:49)
[2022-04-14 09:52] LABS: C-Reactive Protein 136 mg/L (Less than 10)
[2022-04-14] MEDS: Ondansetron 4 MG/2 ML VIAL IVP PRN (15:18)
[2022-04-14] MEDS: *HR* HYDROcodone/Acet 5/325 mg TABLET PO PRN ×2 (15:19→21:51)
[2022-04-14] MEDS ORDERED: Iopamidol - 370 500 ML MLS IVP ONE (15:55)
[2022-04-14] MEDS: Cefepime HCl 2,000 MG in 0.9 % Sodium Chloride 10 ML IVP SCH (17:32)
[2022-04-15] MEDS: MetroNIDAZOLE 500 MG/100 ML 500 MG/100 ML BAG IVPB SCH ×3 (00:12→15:07)
[2022-04-15 06:02] LABS: Basophils # 0.1 K/mcL (0.0-0.2); Basophils % 0.6 %; Eosinophils # 0.1 K/mcL (0.0-0.6); Eosinophils % 1.6 %; Hematocrit 32.6 % (37.5-50.1); Hemoglobin 9.5 g/dL (12.9-16.9); Immature Granulocytes % 0.3 % (0-4); Lymphocytes # 1.3 K/mcL (0.6-4.6); Lymphocytes % 14.8 %; Mean Corpuscular HGB Conc 29.1 g/dL (31.6-35.5); Mean Corpuscular Hemoglobin 19.9 pg (28.0-33.3); Mean Corpuscular Volume 68.2 fL (83.0-100.0); Mean Platelet Volume 10.2 fL (9.4-12.4); Monocytes # 0.7 K/mcL (0.0-1.3); Monocytes % 8.3 %; Platelet Count 399 K/mcL (140-400); Red Blood Count 4.78 M/mcL (4.19-5.50); Red Cell Distribution Width 20.1 % (11.5-14.5); Segmented Neutrophils % 74.4 %; White Blood Count 8.7 K/mcL (4.3-11.1)
[2022-04-15] MEDS: Cefepime HCl 2,000 MG in 0.9 % Sodium Chloride 10 ML IVP SCH ×2 (06:11→17:28)
[2022-04-15] MEDS: *HR* Heparin 5,000 UNIT/ML VIAL SQ SCH ×2 (06:13→17:28)
[2022-04-15 06:14] LABS: Neutrophils # 6.5 K/mcL (1.6-8.9)
[2022-04-15] MEDS: *HR* HYDROcodone/Acet 5/325 mg TABLET PO PRN ×2 (06:14→11:52)
[2022-04-15 06:15] LABS: Anisocytosis 1+ (Not Present); Microcytosis Present (Not Present); Platelet Estimate Normal (Normal)
[2022-04-15 06:19] LABS: BUN/Creatinine Ratio 21 (6-26); Blood Urea Nitrogen 13 mg/dL (6-20); Calcium 8.5 mg/dL (8.6-10.3); Carbon Dioxide 25 mEq/L (23-29); Chloride 103 mEq/L (98-107); Glucose 113 mg/dL (70-105); Osmolality,Calculated 281 (280-300); Potassium 3.6 mEq/L (3.5-5.1); Sodium 135 mEq/L (136-145); eGFR For African Americans > 60 (> 60); eGFR For Non-African Americans > 60 (> 60)
[2022-04-15] MEDS: Nicotine 21 MG PATCH.TD24 TD SCH (09:39)
[2022-04-15] MEDS ORDERED: *HR* OxyCODONE Immed Rel 5 MG TABLET PO PRN (12:12)
[2022-04-15] MEDS: ARIPiprazole 2 MG TABLET PO SCH (12:41)
[2022-04-15] MEDS: Ondansetron 4 MG/2 ML VIAL IVP PRN ×2 (12:45→22:52)
[2022-04-15] MEDS ORDERED: *HR* OxyCODONE ER (12 HR) 10 MG TABLET PO PRN (14:00)
[2022-04-15] MEDS: *HR* OxyCODONE Immed Rel 5 MG TABLET PO PRN (17:27)
[2022-04-15] MEDS: Gabapentin 400 MG CAPSULE PO SCH ×4 (17:27→22:44)
[2022-04-15] MEDS: Baclofen 10 MG TABLET PO SCH ×2 (17:28→22:45)
[2022-04-15] MEDS: traZODone 50 MG TABLET PO SCH (22:44)
[2022-04-16] MEDS: MetroNIDAZOLE 500 MG/100 ML 500 MG/100 ML BAG IVPB SCH ×3 (01:35→16:42)
[2022-04-16 02:05] LABS: Basophils # 0.1 K/mcL (0.0-0.2); Basophils % 0.5 %; Eosinophils # 0.1 K/mcL (0.0-0.6); Eosinophils % 0.8 %; Hematocrit 34.2 % (37.5-50.1); Hemoglobin 10.1 g/dL (12.9-16.9); Immature Granulocytes % 0.3 % (0-4); Lymphocytes # 1.3 K/mcL (0.6-4.6); Lymphocytes % 14.4 %; Mean Corpuscular HGB Conc 29.5 g/dL (31.6-35.5); Mean Corpuscular Hemoglobin 20.3 pg (28.0-33.3); Mean Corpuscular Volume 68.7 fL (83.0-100.0); Mean Platelet Volume 10.3 fL (9.4-12.4); Monocytes # 0.7 K/mcL (0.0-1.3); Monocytes % 7.2 %; Neutrophils # 7.1 K/mcL (1.6-8.9); Platelet Count 404 K/mcL (140-400); Red Blood Count 4.98 M/mcL (4.19-5.50); Red Cell Distribution Width 20.3 % (11.5-14.5); Segmented Neutrophils % 76.8 %; White Blood Count 9.3 K/mcL (4.3-11.1)
[2022-04-16 02:11] LABS: BUN/Creatinine Ratio 14 (6-26); Blood Urea Nitrogen 10 mg/dL (6-20); Calcium 8.6 mg/dL (8.6-10.3); Carbon Dioxide 29 mEq/L (23-29); Chloride 102 mEq/L (98-107); Glucose 111 mg/dL (70-105); Magnesium 1.7 mg/dL (1.6-2.6); Osmolality,Calculated 284 (280-300); Phosphorous 3.4 mg/dL (2.7-4.5); Potassium 3.7 mEq/L (3.5-5.1); Sodium 137 mEq/L (136-145); eGFR For African Americans > 60 (> 60); eGFR For Non-African Americans > 60 (> 60)
[2022-04-16 03:30] LABS: Anisocytosis 1+ (Not Present)
[2022-04-16 03:31] LABS: Large Platelets Present (Not Present)
[2022-04-16] MEDS: *HR* Heparin 5,000 UNIT/ML VIAL SQ SCH ×2 (06:05→17:20)
[2022-04-16] MEDS: Cefepime HCl 2,000 MG in 0.9 % Sodium Chloride 10 ML IVP SCH ×2 (06:06→17:14)
[2022-04-16] MEDS: *HR* OxyCODONE Immed Rel 5 MG TABLET PO PRN ×3 (06:19→21:35)
[2022-04-16] MEDS: Ondansetron 4 MG/2 ML VIAL IVP PRN ×2 (08:19→17:19)
[2022-04-16] MEDS ORDERED: *HR* Promethazine 25 MG/ML VIAL IM ONE (09:25)
[2022-04-16] MEDS: Baclofen 10 MG TABLET PO SCH ×3 (13:12→20:41)
[2022-04-16] MEDS: Nicotine 21 MG PATCH.TD24 TD SCH (13:12)
[2022-04-16] MEDS: Gabapentin 400 MG CAPSULE PO SCH ×6 (13:12→21:26)
[2022-04-16] MEDS: Lactobacillus 1 EACH CAP.SPRINK PO SCH (13:13)
[2022-04-16] MEDS ORDERED: Ipratropium/Albuterol Neb 3 ML IH PRN (18:40)
[2022-04-16] MEDS: ARIPiprazole 2 MG TABLET PO SCH (18:43)
[2022-04-16] MEDS: traZODone 50 MG TABLET PO SCH ×2 (20:41→21:32)
[2022-04-17] MEDS: MetroNIDAZOLE 500 MG/100 ML 500 MG/100 ML BAG IVPB SCH ×4 (00:26→23:59)
[2022-04-17 02:21] LABS: Basophils # 0.1 K/mcL (0.0-0.2); Basophils % 0.5 %; Eosinophils # 0.1 K/mcL (0.0-0.6); Eosinophils % 1.2 %; Hematocrit 35.4 % (37.5-50.1); Hemoglobin 10.3 g/dL (12.9-16.9); Immature Granulocytes % 0.3 % (0-4); Lymphocytes # 1.7 K/mcL (0.6-4.6); Lymphocytes % 17.9 %; Mean Corpuscular HGB Conc 29.1 g/dL (31.6-35.5); Mean Corpuscular Hemoglobin 19.9 pg (28.0-33.3); Mean Corpuscular Volume 68.5 fL (83.0-100.0); Mean Platelet Volume 10.3 fL (9.4-12.4); Monocytes # 0.7 K/mcL (0.0-1.3); Monocytes % 7.4 %; Neutrophils # 6.8 K/mcL (1.6-8.9); Platelet Count 447 K/mcL (140-400); Red Blood Count 5.17 M/mcL (4.19-5.50); Red Cell Distribution Width 20.6 % (11.5-14.5); Segmented Neutrophils % 72.7 %; White Blood Count 9.4 K/mcL (4.3-11.1)
[2022-04-17 02:36] LABS: Anisocytosis 2+ (Not Present); Microcytosis Present (Not Present)
[2022-04-17 02:44] LABS: BUN/Creatinine Ratio 14 (6-26); Blood Urea Nitrogen 10 mg/dL (6-20); Calcium 8.8 mg/dL (8.6-10.3); Carbon Dioxide 29 mEq/L (23-29); Chloride 102 mEq/L (98-107); Glucose 98 mg/dL (70-105); Osmolality,Calculated 287 (280-300); Potassium 3.6 mEq/L (3.5-5.1); Sodium 139 mEq/L (136-145); eGFR For African Americans > 60 (> 60); eGFR For Non-African Americans > 60 (> 60)
[2022-04-17] MEDS: Ondansetron 4 MG/2 ML VIAL IVP PRN ×2 (03:02→16:21)
[2022-04-17] MEDS: *HR* OxyCODONE Immed Rel 5 MG TABLET PO PRN ×3 (03:47→19:55)
[2022-04-17] MEDS: Cefepime HCl 2,000 MG in 0.9 % Sodium Chloride 10 ML IVP SCH ×2 (05:49→18:46)
[2022-04-17] MEDS: *HR* Heparin 5,000 UNIT/ML VIAL SQ SCH ×2 (05:50→16:21)
[2022-04-17] MEDS: Nicotine 21 MG PATCH.TD24 TD SCH (10:09)
[2022-04-17] MEDS: ARIPiprazole 2 MG TABLET PO SCH (10:14)
[2022-04-17] MEDS: Lactobacillus 1 EACH CAP.SPRINK PO SCH (10:15)
[2022-04-17] MEDS: Baclofen 10 MG TABLET PO SCH ×3 (10:15→19:55)
[2022-04-17] MEDS: Gabapentin 400 MG CAPSULE PO SCH ×6 (10:51→19:54)
[2022-04-17] MEDS: traZODone 50 MG TABLET PO SCH (19:55)
[2022-04-18] MEDS: *HR* Heparin 5,000 UNIT/ML VIAL SQ SCH ×2 (06:21→16:42)
[2022-04-18] MEDS: Cefepime HCl 2,000 MG in 0.9 % Sodium Chloride 10 ML IVP SCH ×2 (06:22→16:40)
[2022-04-18 06:36] LABS: Basophils # 0.1 K/mcL (0.0-0.2); Basophils % 0.9 %; Eosinophils # 0.1 K/mcL (0.0-0.6); Eosinophils % 1.7 %; Hematocrit 33.6 % (37.5-50.1); Hemoglobin 9.9 g/dL (12.9-16.9); Immature Granulocytes % 0.2 % (0-4); Lymphocytes # 1.7 K/mcL (0.6-4.6); Lymphocytes % 21.1 %; Mean Corpuscular HGB Conc 29.5 g/dL (31.6-35.5); Mean Corpuscular Hemoglobin 20.2 pg (28.0-33.3); Mean Corpuscular Volume 68.6 fL (83.0-100.0); Mean Platelet Volume 10.3 fL (9.4-12.4); Monocytes # 0.9 K/mcL (0.0-1.3); Monocytes % 10.5 %; Neutrophils # 5.4 K/mcL (1.6-8.9); Platelet Count 400 K/mcL (140-400); Red Cell Distribution Width 20.3 % (11.5-14.5); Segmented Neutrophils % 65.6 %; White Blood Count 8.2 K/mcL (4.3-11.1)
[2022-04-18 06:58] LABS: BUN/Creatinine Ratio 16 (6-26); Blood Urea Nitrogen 12 mg/dL (6-20); Calcium 8.5 mg/dL (8.6-10.3); Carbon Dioxide 28 mEq/L (23-29); Chloride 103 mEq/L (98-107); Glucose 97 mg/dL (70-105); Microcytosis Present (Not Present); Osmolality,Calculated 284 (280-300); Platelet Estimate Normal (Normal); Potassium 4.2 mEq/L (3.5-5.1); Sodium 137 mEq/L (136-145); eGFR For African Americans > 60 (> 60); eGFR For Non-African Americans > 60 (> 60)
[2022-04-18] MEDS: Lactobacillus 1 EACH CAP.SPRINK PO SCH (07:39)
[2022-04-18] MEDS: Baclofen 10 MG TABLET PO SCH ×3 (07:39→22:07)
[2022-04-18] MEDS: MetroNIDAZOLE 500 MG/100 ML 500 MG/100 ML BAG IVPB SCH ×3 (07:39→23:49)
[2022-04-18] MEDS: ARIPiprazole 2 MG TABLET PO SCH (07:39)
[2022-04-18] MEDS: Gabapentin 400 MG CAPSULE PO SCH ×6 (07:39→22:07)
[2022-04-18] MEDS: Nicotine 21 MG PATCH.TD24 TD SCH (07:40)
[2022-04-18] MEDS: Ondansetron 4 MG/2 ML VIAL IVP PRN (15:21)
[2022-04-18] MEDS: polyethylene glycoL 3350 17 GM POWD.PACK PO SCH (16:41)
[2022-04-18] MEDS: traZODone 50 MG TABLET PO SCH (22:07)
[2022-04-19] MEDS: Cefepime HCl 2,000 MG in 0.9 % Sodium Chloride 10 ML IVP SCH ×2 (05:20→16:21)
[2022-04-19] MEDS: MetroNIDAZOLE 500 MG/100 ML 500 MG/100 ML BAG IVPB SCH ×2 (06:09→14:32)
[2022-04-19] MEDS: *HR* Heparin 5,000 UNIT/ML VIAL SQ SCH ×2 (06:09→16:20)
[2022-04-19 07:33] LABS: BUN/Creatinine Ratio 21 (6-26); Blood Urea Nitrogen 13 mg/dL (6-20); Calcium 8.2 mg/dL (8.6-10.3); Carbon Dioxide 29 mEq/L (23-29); Chloride 104 mEq/L (98-107); Glucose 120 mg/dL (70-105); Osmolality,Calculated 285 (280-300); Potassium 3.9 mEq/L (3.5-5.1); Sodium 137 mEq/L (136-145); eGFR For African Americans > 60 (> 60); eGFR For Non-African Americans > 60 (> 60)
[2022-04-19] MEDS: Lactobacillus 1 EACH CAP.SPRINK PO SCH (08:02)
[2022-04-19] MEDS: Baclofen 10 MG TABLET PO SCH ×3 (08:02→21:25)
[2022-04-19] MEDS: Gabapentin 400 MG CAPSULE PO SCH ×8 (08:02→21:25)
[2022-04-19] MEDS: ARIPiprazole 2 MG TABLET PO SCH (08:02)
[2022-04-19] MEDS: Nicotine 21 MG PATCH.TD24 TD SCH (08:03)
[2022-04-19] MEDS: polyethylene glycoL 3350 17 GM POWD.PACK PO SCH (08:21)
[2022-04-19] MEDS: Ondansetron 4 MG/2 ML VIAL IVP PRN (13:04)
[2022-04-19] MEDS: *HR* OxyCODONE Immed Rel 5 MG TABLET PO PRN ×3 (14:33→21:24)
[2022-04-19] MEDS: *HR* Promethazine 25 MG/ML VIAL IM PRN (16:21)
[2022-04-19] MEDS: traZODone 50 MG TABLET PO SCH (21:25)
[2022-04-20] MEDS: MetroNIDAZOLE 500 MG/100 ML 500 MG/100 ML BAG IVPB SCH ×4 (00:17→22:59)
[2022-04-20] MEDS: *HR* Promethazine 25 MG/ML VIAL IM PRN (00:21)
[2022-04-20] MEDS: *HR* Heparin 5,000 UNIT/ML VIAL SQ SCH ×2 (06:30→16:42)
[2022-04-20] MEDS: Cefepime HCl 2,000 MG in 0.9 % Sodium Chloride 10 ML IVP SCH ×2 (06:31→16:41)
[2022-04-20] MEDS: Gabapentin 400 MG CAPSULE PO SCH ×6 (08:41→21:03)
[2022-04-20] MEDS: ARIPiprazole 2 MG TABLET PO SCH (08:42)
[2022-04-20] MEDS: Baclofen 10 MG TABLET PO SCH ×3 (08:42→21:02)
[2022-04-20] MEDS: Lactobacillus 1 EACH CAP.SPRINK PO SCH (08:42)
[2022-04-20] MEDS: polyethylene glycoL 3350 17 GM POWD.PACK PO SCH (08:43)
[2022-04-20] MEDS: Nicotine 21 MG PATCH.TD24 TD SCH (10:12)
[2022-04-20] MEDS: Ondansetron 4 MG/2 ML VIAL IVP PRN (18:41)
[2022-04-20] MEDS: traZODone 50 MG TABLET PO SCH (21:03)
[2022-04-21] MEDS: *HR* Heparin 5,000 UNIT/ML VIAL SQ SCH (06:01)
[2022-04-21] MEDS: Cefepime HCl 2,000 MG in 0.9 % Sodium Chloride 10 ML IVP SCH (06:08)
[2022-04-21] MEDS: Ondansetron 4 MG/2 ML VIAL IVP PRN (09:36)
[2022-04-21] MEDS: ARIPiprazole 2 MG TABLET PO SCH (09:37)
[2022-04-21] MEDS: *HR* OxyCODONE Immed Rel 5 MG TABLET PO PRN ×2 (09:37→16:44)
[2022-04-21] MEDS: Lactobacillus 1 EACH CAP.SPRINK PO SCH (09:37)
[2022-04-21] MEDS: MetroNIDAZOLE 500 MG/100 ML 500 MG/100 ML BAG IVPB SCH (09:37)
[2022-04-21] MEDS: Gabapentin 400 MG CAPSULE PO SCH ×4 (09:37→13:52)
[2022-04-21] MEDS: Baclofen 10 MG TABLET PO SCH ×2 (09:37→13:52)
[2022-04-21] MEDS: polyethylene glycoL 3350 17 GM POWD.PACK PO SCH (09:37)
[2022-04-21] MEDS: Nicotine 21 MG PATCH.TD24 TD SCH (09:38)
[2022-04-21] MEDS: *HR* Promethazine 25 MG/ML VIAL IM PRN (13:52)
[2022-04-21 15:59] VITALS: BP 125/74; PULSE 129; TEMP 97.6; O2SAT 98
== END 2022-04-21 16:47 | disposition other institution (70) | DRG 466 ==
LOC: 3BNU 16:14 → EMEROOARM 16:14 → SUATTDRO 04-14 12:09 → 3BNU 04-14 13:05 → SUATTDRO 04-15 11:16
PROVIDERS: ADMIT Internal Medicine; ATTEND Nurse Practitioner